=== PATIENT | female | born 1965 | race Caucasian/White ===

== ENCOUNTER 2020-04-09 00:02 | Emergency (ER) | payer OTHER, SELFPAY ==
--- NOTE | 2020-04-09 00:06 | XRR_ITS ---
PROCEDURE INFORMATION: Exam: XR Chest, 1 View Exam date and time: 04/09/2020 12:49 AM Age: 54 years old Clinical indication: Chest pain; Type not specified; Patient HX: C/O mid chest and mid back pain. Heartburn TECHNIQUE: Imaging protocol: XR of the chest Views: 1 view. COMPARISON: No relevant prior studies available. FINDINGS: Lungs: Unremarkable. No consolidation. Pleural space: Unremarkable. No pleural effusion. No pneumothorax. Heart/Mediastinum: There is a moderate hiatal hernia. Bones/joints: Unremarkable. XR/XR chest 1V portable [id number] IMPRESSION: Moderate hiatal hernia.
[2020-04-09 00:13] VITALS: BP 151/99; PULSE 56; RESP 16; TEMP 36.6; O2SAT 99; BMI 39.4
--- NOTE | 2020-04-09 00:31 | W.ED.CHESTPA ---
HPI - Chest Pain General: Chief Complaint: Chest Pain Stated Complaint: CP/SOB Time Seen by Provider: 04/09/20 00:25 Source: patient Mode of arrival: ambulatory Limitations: no limitations History of Present Illness: HPI narrative: Patient is a 54-year-old female with a history of HTN, DM, GERD, anxiety here for complaints of chest pain that began several hours ago. Patient tells me yesterday she noticed pain in the right side of her back that was present for several hours before subsiding on its own. She denied any injury or trauma. She was not having any shortness of breath or difficulty breathing. She states at the time the pain was localized to her back. She states once pain subsided she slept normally and states all day today she felt normal however a few hours ago while sleeping she woke up with epigastric/substernal chest pain. She states shortly after that the right side of her back began hurting again. She denies any previous cardiac or pulmonary history. MD complaint: chest pain Onset (ago): hour(s) Timing of current episode: constant Onset: during rest Pain location: substernal Pain radiation: back Relieving factors: nothing Associated symptoms: Deny abdominal pain, dyspnea, fever(s), nausea, palpitations, syncope or vomiting Risk Factors: Coronary artery disease risk factors: diabetes, smoking history and hypertension Thoracic aortic dissection risk factors: longstanding hypertension Related Data: On Oral Contraceptives: No Review of Systems Const: Denies: fever(s) or chills Eyes: Denies: change in vision, blurry vision, photophobia, floaters or seeing flashes ENMT: Denies: throat pain, odynophagia or nasal congestion Card: Reports: chest pain; Denies: palpitations, irregular heart rhythm, edema, swelling of feet/ankles, lightheadedness, syncope, pre-syncope, dyspnea on exertion, orthopnea or leg pain with exertion Resp: Denies: dyspnea, productive cough, non-productive cough, pain on inspiration, hemoptysis or chest congestion GI: Reports: heartburn; Denies: abdominal pain, nausea, vomiting, hematemesis, coffee ground emesis, dysphagia, diarrhea, bloating or GI cramping : Denies: flank pain, difficulty voiding, dysuria, urinary frequency, urinary urgency or urinary hesitancy Musc: Reports: back pain; Denies: neck pain or joint pain Skin/Breast: Denies: rash Neuro: Denies: headache(s), numbness in extremities, weakness in extremities or sensory changes PFSH ED PFSH: Social History Smoking and tobacco status: former smoker Current gender identity: Female Physical Exam Const: COMMON NORMALS: no acute distress, patient oriented x3 and alert GENERAL APPEARANCE: cooperative and anxious NUTRITIONAL APPEARANCE: obese ORIENTATION/CONSCIOUSNESS: Yes oriented to person, Yes oriented to place and Yes oriented to time OTHER: pt getting nauseous during examination HENMT: COMMON NORMALS: normocephalic and atraumatic HEAD & SCALP: normocephalic and atraumatic Neck/C-Spine: COMMON NORMALS: full ROM, no lymphadenopathy and no meningeal signs Chest: COMMONS NORMALS: normal inspection of the chest and normal palpation of entire chest wall Resp: COMMON NORMALS: normal respiratory effort and clear to auscultation bilaterally AUSCULTATION: clear to auscultation bilaterally Cardio: COMMON NORMALS: regular rate and regular rhythm RATE: regular rate RHYTHM: regular rhythm GI: COMMON NORMALS: Normal to inspection, nondistended, normoactive bowel sounds present, Soft to palpation, No hepatosplenomegaly present and no masses PALPATION: Yes Soft to palpation, Yes Tenderness to palpation present (GI) (epigastric ) and Yes No hepatosplenomegaly present : COMMON NORMALS: Yes no CVA tenderness BLADDER/KIDNEY EXAM: Yes no CVA tenderness Back/Pelvis: COMMON NORMALS: no CVA tenderness, thoracic and lumbar spine normal to inspection, no thoracic nor lumbar tenderness and thoraco-lumbar ROM normal OTHER: TTP over R inferior scapular region; no midline tenderness Extremity: COMMON NORMALS: normal to inspection and full ROM GENERAL: Yes normal exam except as noted Neuro: KIRIT COMA SCALE: document GCS findings [place] coma scale eye opening: Spontaneous [place] coma scale verbal response: Orientated [place] coma scale motor response: Obey commands [place] coma scale total score: 15 COMMON NORMALS: patient oriented x3, moves all extremities, no focal motor deficits, no sensory deficits noted and gait normal SENSORIUM/ORIENTATION: Yes alert, Yes oriented to person, Yes oriented to place and Yes oriented to time MENINGEAL SIGNS: Yes no meningeal signs Skin: COMMON NORMALS: no rashes or lesions noted GENERAL SKIN EXAM: no rashes or lesions noted Course Vital Signs: Vital signs: Vital Signs Temperature 97.8 F 04/09/20 00:13 Pulse Rate 51 L 04/09/20 02:16 Respiratory Rate 18 04/09/20 02:16 Blood Pressure 148/107 04/09/20 02:16 Pulse Oximetry 96 04/09/20 02:16 MDM - Chest Pain MDM Narrative: Medical decision making narrative: Patient's history of right-sided back pain that subsided on its own yesterday along with patient being completely pain-free the remainder of yesterday, throughout the night, and most of today before developing chest pain and again right-sided back pain while laying down does not raise any suspicion for acute dissection, aneurysm, embolus, pneumothorax, or other emergent condition at this time. UA is not suspicious for a nephrolithiasis. Pain on her back seems to be fairly reproducible with palpation. Patient's EKG showing no acute changes. Her troponin is normal as is her repeat. CXR shows a large hiatal hernia but otherwise normal. Possibility of referred pain from the hiatal hernia/GERD. Other DDx musculoskeletal pain. Patient is stable to follow-up with her primary care provider next week for reevaluation. Return to ED precautions given. Lab Data: Labs: Lab Results 04/09/20 04/09/20 04/09/20 Range/Units 00:33 00:33 00:33 WBC 14.3 H (4.0-10.0) 10^3/ uL RBC 4.77 (4.1-5.3) 10^6/u L Hgb 13.6 (11.5-15.3) g/dL Hct 43.7 (37.0-47.0) % MCV 91.6 (81-99) fL MCH 28.5 (28.0-34.0) pg MCHC 31.1 (30.0-36.0) g/dL RDW 14.7 (12.1-15.1) % Plt Count 326 (130-400) 10^3/c mm MPV 10.1 (7.4-10.4) fL Neut % (Auto) 34.7 % Lymph % (Auto) 55.5 % [place] % (Auto) 7.3 % Eos % (Auto) 1.3 % Baso % (Auto) 1.0 % Neut # (Auto) 5.0 (1.8-7.7) 10^3/u L Lymph # (Auto) 7.9 H (0.8-4.8) 10^3/u L [place] # (Auto) 1.1 H (0.2-0.9) 10^3/u L Eos # (Auto) 0.2 (0.0-0.8) 10^3/u L Baso # (Auto) 0.2 H (0.0-0.1) 10^3/u L Nucleated RBC % (a uto) 0 % Nucleated RBCs # 0.0 /100WBC Sodium 141 (136-145) mmol/L Potassium 4.2 (3.5-5.1) mmol/L Chloride 108 H (98-107) mmol/L Carbon Dioxide 21 L (22-29) mmol/L Anion Gap 16.2 (5-19) BUN 19 (6-20) mg/dL Creatinine 0.8 (0.5-0.9) mg/dL GFR Calculation 74.7 L (90-130) mL/min Glucose 130 H (65-115) mg/dL Calculated Osmolal ity 290 (285-295) mOsm/k g Calcium 9.9 (8.5-10.5) mg/dL Total Bilirubin 0.2 (0.15-1.2) mg/dL AST 16 (0-32) U/L ALT 16 (0-33) U/L Alkaline Phosphata se 82 (35-105) IU/L Troponin T Baselin e 6 (0-10) ng/L Troponin T 120 Min [place] (0-10) ng/L Delta Troponin T (0-10) ABS# Total Protein 6.7 (6.6-8.7) g/dL Albumin 4.2 (3.5-5.2) g/dL Globulin 2.5 (1.3-4.6) g/dL Urine Color (Yellow) Urine Appearance (CLEAR) Urine pH (5-7) Ur Specific Gravit y (1.005-1.030) Urine Protein (Negative) Urine Glucose (UA) (Normal) Urine Ketones (Negative) Urine Blood (Negative) Urine Nitrate (Negative) Urine Bilirubin (NEGATIVE) Urine Urobilinogen (Negative) mg/dL Ur Leukocyte [place] (Negative) Urine RBC (0-2) /hpf Urine WBC (0-5) /hpf Ur Squamous Epith Cells (0-5) Urine Bacteria (NONE) Urine Mucus 04/09/20 04/09/20 Range/Units 01:35 02:13 WBC (4.0-10.0) 10^3/ uL RBC (4.1-5.3) 10^6/u L Hgb (11.5-15.3) g/dL Hct (37.0-47.0) % MCV (81-99) fL MCH (28.0-34.0) pg MCHC (30.0-36.0) g/dL RDW (12.1-15.1) % Plt Count (130-400) 10^3/c mm MPV (7.4-10.4) fL Neut % (Auto) % Lymph % (Auto) % [place] % (Auto) % Eos % (Auto) % Baso % (Auto) % Neut # (Auto) (1.8-7.7) 10^3/u L Lymph # (Auto) (0.8-4.8) 10^3/u L [place] # (Auto) (0.2-0.9) 10^3/u L Eos # (Auto) (0.0-0.8) 10^3/u L Baso # (Auto) (0.0-0.1) 10^3/u L Nucleated RBC % (a uto) % Nucleated RBCs # /100WBC Sodium (136-145) mmol/L Potassium (3.5-5.1) mmol/L Chloride (98-107) mmol/L Carbon Dioxide (22-29) mmol/L Anion Gap (5-19) BUN (6-20) mg/dL Creatinine (0.5-0.9) mg/dL GFR Calculation (90-130) mL/min Glucose (65-115) mg/dL Calculated Osmolal ity (285-295) mOsm/k g Calcium (8.5-10.5) mg/dL Total Bilirubin (0.15-1.2) mg/dL AST (0-32) U/L ALT (0-33) U/L Alkaline Phosphata se (35-105) IU/L Troponin T Baselin e (0-10) ng/L Troponin T 120 Min [place] 6.00 (0-10) ng/L Delta Troponin T 0 (0-10) ABS# Total Protein (6.6-8.7) g/dL Albumin (3.5-5.2) g/dL Globulin (1.3-4.6) g/dL Urine Color Yellow (Yellow) Urine Appearance Clear (CLEAR) Urine pH 6.5 (5-7) Ur Specific Gravit y 1.015 (1.005-1.030) Urine Protein Neg (Negative) Urine Glucose (UA) Norm (Normal) Urine Ketones Negative (Negative) Urine Blood Neg (Negative) Urine Nitrate Negative (Negative) Urine Bilirubin Neg (NEGATIVE) Urine Urobilinogen Norm (Negative) mg/dL Ur Leukocyte [place] Negative (Negative) Urine RBC Rare (0-2) /hpf Urine WBC 0-4 H (0-5) /hpf Ur Squamous Epith Cells 0-4 H (0-5) Urine Bacteria Trace (NONE) Urine Mucus Trace Imaging Data^: CXR: My impression: large hiatal hernia present; otherwise WNL; reviewed with Dr. Metz EKG Data^: EKG 1: EKG interpretation date: 04/09/20 EKG interpretation time: 00:39 Interpretation: Sinus bradycardia Rate [address] elevation or depression changes noted EKG 2: EKG interpretation date: 04/09/20 EKG interpretation time: 02:34 Interpretation: Sinus bradycardia Rate [address] elevation or depression changes noted No changes from previous EKG performed on same visit Discharge Plan Discharge Patient Disposition: Home, Self-Care Clinical Impression: Chest pain, non-cardiac, Hernia, hiatal Acute right-sided back pain Qualifiers: Back pain location: thoracic back pain Qualified Code(s): M54.6 - Pain in thoracic spine Condition: Stable Discharge Orders: Discharge Order (Routine); Ordered 04/09/20 Ordered By: Izzy Stratton Activity Restrictions/Additional Instructions: Please follow up with primary care as soon as possible for continued symptoms. May return to the ED for any concerns you may have. Coding Level of Care Code ED Plush Weaver for Chg Fwd Exam Comprehensive
[2020-04-09 00:40] VITALS: BP 162/115; PULSE 58; RESP 16; O2SAT 98
[2020-04-09 00:40] LABS: Basophils # 0.2 10^3/uL (0.0-0.1); Eosinophils # 0.2 10^3/uL (0.0-0.8); Eosinophils % 1.3 %; Hematocrit 43.7 % (37.0-47.0); Hemoglobin 13.6 g/dL (11.5-15.3); Lymphocytes # 7.9 10^3/uL (0.8-4.8); Lymphocytes % 55.5 %; Mean Corpuscular HGB Conc 31.1 g/dL (30.0-36.0); Mean Corpuscular Hemoglobin 28.5 pg (28.0-34.0); Mean Corpuscular Volume 91.6 fL (81-99); Mean Platelet Volume 10.1 fL (7.4-10.4); Monocytes # 1.1 10^3/uL (0.2-0.9); Monocytes % 7.3 %; Neutrophils % 34.7 %; Nucleated Red Blood Cells % 0 %; Platelet Count 326 10^3/cmm (130-400); Positive M 1; Red Blood Count 4.77 10^6/uL (4.1-5.3); Red Cell Distribution Width 14.7 % (12.1-15.1); White Blood Count 14.3 10^3/uL (4.0-10.0)
[2020-04-09] MEDS: ondansetron 2 mg/ML SDV 2 mL 4 MG IVP (00:45)
[2020-04-09 00:52] VITALS: RESP 18; O2SAT 99
[2020-04-09] MEDS: morphine 4 mg/mL SDV 1 mL IVP (00:52)
[2020-04-09] MEDS: lidocaine 2% viscous 15 ML, aluminum-mag hydrox-simethicon 30 ML, sucralfate oral liq 1 GM PO (00:52)
[2020-04-09 01:07] LABS: Slide Review Slide Review Perform
[2020-04-09 01:09] LABS: Alanine Aminotransferase 16 U/L (0-33); Albumin Level 4.2 g/dL (3.5-5.2); Alkaline Phosphatase 82 IU/L (35-105); Anion Gap 16.2 (5-19); Aspartate Amino Transferase 16 U/L (0-32); Blood Urea Nitrogen 19 mg/dL (6-20); Calcium 9.9 mg/dL (8.5-10.5); Carbon Dioxide 21 mmol/L (22-29); Chloride 108 mmol/L (98-107); Globulin 2.5 g/dL (1.3-4.6); Glomerular Filtration Rate 74.7 mL/min (90-130); Glucose 130 mg/dL (65-115); Osmolality Calculated 290 mOsm/kg (285-295); Potassium 4.2 mmol/L (3.5-5.1); Sodium 141 mmol/L (136-145); Total Bilirubin 0.2 mg/dL (0.15-1.2); Total Protein 6.7 g/dL (6.6-8.7)
[2020-04-09 01:10] LABS: Troponin(5th) Baseline 6 ng/L (0-10)
[2020-04-09 01:19] VITALS: BP 154/70; PULSE 52; RESP 22; O2SAT 97
--- NOTE | 2020-04-09 02:06 | ECG_ITS ---
[facility] Test Date: 2020-04-09 Pat Name: Shayla Borges Department: Room: Gender: Female Department Editor: : 1965 Requested By: Izzy Stratton Order Number: [id number] Chirag MD: Kameron Geiger M.D. Measurements Intervals [place] Rate: 52 P: 59 NE: 180 QRS: 75 QRSD: 71 T: 32 QT: 390 QTc: 363 Interpretive Statements SINUS BRADYCARDIA No previous ECG available for comparison Electronically Signed On 04-09-2020 9:41:28 CDT by Kameron Geiger M.D. [id number] f
[2020-04-09 02:11] LABS: Bilirubin Urine Neg (NEGATIVE); Blood Urine Neg (Negative); Glucose Urine UA Norm (Normal); Ketones Urine Negative (Negative); Leukocyte Esterase Urine Negative (Negative); Nitrate Urine Negative (Negative); Protein Urine Neg (Negative); Specific Gravity, Urine 1.015 (1.005-1.030); Urine Appearance Clear (CLEAR); Urine Color Yellow (Yellow); Urobilinogen Urine Norm (Negative); pH Urine 6.5 (5-7)
[2020-04-09] MEDS: ketorolac 30 mg/mL INJ IVP (02:11)
[2020-04-09 02:12] LABS: Bacteria Urine TRACE; RBC Urine RARE /hpf (0-2); Squamous Epithelial Cell Urine 0-4 (0-5)
[2020-04-09 02:13] LABS: Add Urine Culture? No; Mucus Urine TRACE; WBC Urine 0-4 /hpf (0-5)
[2020-04-09] MEDS: orphenadrine 30 mg/mL Inj 2 mL 60 MG IM (02:13)
[2020-04-09 02:16] VITALS: BP 148/107; PULSE 51; RESP 18; O2SAT 96
[2020-04-09 02:47] LABS: Troponin 5 2HR Delta 0 ABS# (0-10)
[2020-04-09] MEDS: metoclopramide 5 mg/mL SDV 2 mL 10 MG IVP (03:00)
[2020-04-09 03:25] VITALS: BP 134/96; PULSE 74; RESP 18; O2SAT 96
== END 2020-04-09 03:32 | disposition home or self-care (01) ==
PROVIDERS: Emergency Provider Physician Assistant
DX: R07.89 Other chest pain (principal); K44.9 Diaphragmatic hernia without obstruction or gangrene; M54.6 Pain in thoracic spine; Z87.891 Personal history of nicotine dependence
CPT/HCPCS: 12345; 71045; 80053; 81001; 84484; 85025; 93005; 96372; 96374; 96375; 99283; J1885; J2270; J2360; J2405; J2765

== ENCOUNTER 2020-04-22 03:37 | Emergency (ER) | payer OTHER, SELFPAY ==
[2020-04-22] VITALS (11 sets, daily range): BP systolic 113–143; BP diastolic 75–98; PULSE 47–68; RESP 14–24; TEMP 36.3–37; O2SAT 88–99; BMI 38.0
[2020-04-22 04:07] LABS: Basophils # 0.1 10^3/uL (0.0-0.1); Basophils % 0.5 %; Eosinophils # 0.1 10^3/uL (0.0-0.8); Eosinophils % 0.7 %; Hematocrit 46.2 % (37.0-47.0); Hemoglobin 14.4 g/dL (11.5-15.3); Lymphocytes # 4.3 10^3/uL (0.8-4.8); Lymphocytes % 22.9 %; Mean Corpuscular HGB Conc 31.2 g/dL (30.0-36.0); Mean Corpuscular Hemoglobin 27.9 pg (28.0-34.0); Mean Corpuscular Volume 89.5 fL (81-99); Mean Platelet Volume 10.6 fL (7.4-10.4); Monocytes # 1.2 10^3/uL (0.2-0.9); Monocytes % 6.5 %; Neutrophils # 13.04 10^3/uL (1.8-7.7); Nucleated Red Blood Cells % 0 %; Platelet Count 364 10^3/cmm (130-400); Red Blood Count 5.16 10^6/uL (4.1-5.3); Red Cell Distribution Width 14.9 % (12.1-15.1); White Blood Count 18.9 10^3/uL (4.0-10.0)
[2020-04-22] MEDS: ondansetron 2 mg/ML SDV 2 mL 4 MG IVP ×4 (04:07→10:41)
[2020-04-22] MEDS: sodium chloride 0.9% 1,000 ML 999 ML IV (04:07)
--- NOTE | 2020-04-22 04:16 | CTR_ITS ---
PROCEDURE INFORMATION: Exam: CT Abdomen And Pelvis With Contrast Exam date and time: 04/22/2020 4:39 AM Age: 54 years old Clinical indication: Nausea and vomiting; Abdominal pain; Generalized; Prior surgery; Surgery date: 6+ months; Surgery type: Gb, hyst, splenectomy, hernia, colon; Additional info: Epigastric pain TECHNIQUE: Imaging protocol: Computed tomography of the abdomen and pelvis with intravenous contrast. Radiation optimization: All CT scans at this facility use at least one of these dose optimization techniques: automated exposure control; mA and/or kV adjustment per patient size (includes targeted exams where dose is matched to clinical indication); or iterative reconstruction. Contrast material: OMNI 300; Contrast volume: 95 ml; Contrast route: INTRAVENOUS (IV); COMPARISON: No relevant prior studies available. RADIATION DOSE METRICS: Total DLP (mGy-cm): 1861.13 FINDINGS: Lungs: The lung bases are clear. Mediastinal space: Large hiatal hernia, measuring up to 8-9 cm in transverse diameter. Liver: Unremarkable. Gallbladder and bile ducts: Provided clinical data describes prior cholecystectomy. However, the gallbladder is present, and contains numerous very small calcified gallstones. The gallbladder appears upper range of normal in size, transverse diameter up to 3.6 cm. No definite pericholecystic fluid or inflammation. Moderate extra hepatic biliary tree dilation, with common duct measuring up to 9-10 mm. Mild intrahepatic biliary prominence. No definite/visible visible common duct stone by CT. There is a 3 mm calcific density in the 3rd portion of the duodenum. While nonspecific, I suspect this may represent a recently passed gallstone. (axial image # 39, series 2.) Please correlate clinically. Pancreas: Mild presumed inflammatory changes around head and body of the the pancreas, suspicious for acute pancreatitis. Please correlate with clinical and laboratory evaluation. Small amount of peripancreatic and retroperitoneal fluid. No pseudocyst. No pancreatic duct dilation. The pancreas appears to enhance homogeneously. 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 There appears to be residual and/or accessory splenic tissue in the left subdiaphragmatic region. Adrenals: Unremarkable. Kidneys and ureters: Suspect a likely benign cyst in each kidney, larger on the left measures about 2 cm. Right cyst measures only 5 mm, too small to accurately characterize. No hydronephrosis of either kidney. No visible ureteral calculus. Stomach and bowel: Several small bowel loops are fluid-filled and borderline prominent in size, measuring up to 26-27 mm in diameter. The overall appearance is not strongly suggestive of significant small bowel obstruction at this time. A low-grade partial obstruction is difficult to exclude from this single exam. This appearance might be secondary to some form of gastroenteritis or ileus. Please correlate clinically. If there is clinical suspicion for small bowel obstruction, follow-up may be helpful to exclude progression. There are no CT findings to strongly suggest diverticulitis. Appendix: The appendix is not identified with certainty, however no pericecal inflammatory changes are seen. Intraperitoneal space: No free air, or ascites. Vasculature: No evidence for abdominal aortic aneurysm. Lymph nodes: No retroperitoneal adenopathy. Bladder: Unremarkable as visualized. Reproductive: Prior hysterectomy. No definite ovarian/adnexal cyst or mass by CT. Bones/joints: Moderate degenerative disc changes at L5-S1. Soft tissues: No significant acute finding. CT/CT abdomen pelvis w con* [id number] IMPRESSION: 1. Cholelithiasis, see additional details above. 2. Moderate biliary tree dilation, see above details. 3 mm calcific density in the 3rd portion of the duodenum. While nonspecific, this may represent a recently passed gallstone. 3. Findings suspicious for acute pancreatitis, see above details. 4. Several small bowel loops are fluid-filled and borderline prominent in size. This appearance may be secondary to some form of gastroenteritis or ileus. See above discussion. 5. No CT evidence to suggest appendicitis, however a normal appendix is not definitely visible. 6. Large hiatal hernia. 7. Other findings discussed above. COMMENTS: Consistent with the [place] [employer]'s Incidental Findings Committee white paper (J Am Marvin Radiol 2018): Any incidental renal lesion less than 1.0 cm or classified as too small to characterize, or any incidental cystic renal lesion characterized as simple-appearing, is likely benign. No follow-up imaging is recommended for these lesions per consensus recommendations based on imaging criteria. Radiation Dose CTDIVOL = (mGy): DLP = 1861.13 (mGy-cm)
--- NOTE | 2020-04-22 04:16 | ECG_ITS ---
[facility] Test Date: 2020-04-22 Pat Name: Shayla Borges Department: Room: Gender: Female Form Raiser: : 1965 Requested By: Timothy Grover Order Number: [id number] Chirag MD: Kameron Geiger M.D. Measurements Intervals [place] Rate: 49 P: 77 [place]: 188 QRS: 38 QRSD: 94 T: 38 QT: 437 QTc: 398 Interpretive Statements SINUS BRADYCARDIA Compared to ECG 04/09/2020 02:34:01 No significant changes Electronically Signed On 04-22-2020 19:04:23 CDT by Kameron Geiger M.D. [id number]
[2020-04-22 04:18] LABS: Alanine Aminotransferase 590 U/L (0-33); Albumin Level 4.3 g/dL (3.5-5.2); Alkaline Phosphatase 215 IU/L (35-105); Aspartate Amino Transferase 384 U/L (0-32); Blood Urea Nitrogen 10 mg/dL (6-20); Carbon Dioxide 19 mmol/L (22-29); Chloride 107 mmol/L (98-107); Globulin 2.9 g/dL (1.3-4.6); Glomerular Filtration Rate 87.2 mL/min (90-130); Glucose 216 mg/dL (65-115); Magnesium 1.9 mg/dL (1.7-2.3); Osmolality Calculated 293 mOsm/kg (285-295); Sodium 140 mmol/L (136-145); Total Bilirubin 3.3 mg/dL (0.15-1.2); Total Protein 7.2 g/dL (6.6-8.7)
[2020-04-22] MEDS: fentaNYL 50 mcg/mL INJ 2mL 100 MCG IVP (04:22)
[2020-04-22] MEDS: metoclopramide 5 mg/mL SDV 2 mL 10 MG IVP ×2 (04:23→10:38)
[2020-04-22 04:28] LABS: Lactate (Lactic Acid level) 2.3 mmol/L (0.5-2.2)
[2020-04-22] MEDS: iohexol 300 mg/mL 100 mL Btl IV (04:53)
[2020-04-22 05:04] LABS: Troponin(5th) Baseline 6 ng/L (0-10)
[2020-04-22 05:04] LABS: Anion Gap 17.8 (5-19); Potassium 3.8 mmol/L (3.5-5.1)
[2020-04-22] MEDS: piperacillin-tazobactam 3.375 GM in sodium chloride 0.9% (plus) 50 ML IV (05:23)
[2020-04-22] MEDS: HYDROmorphone 1 mg/mL INJ 1 mL IVP ×3 (05:34→10:39)
[2020-04-22 05:41] LABS: Lipase > 16000 U/L (13-60)
[2020-04-22 05:54] LABS: Add Urine Microscopic? NO
[2020-04-22 05:57] LABS: Bilirubin Urine Neg (NEGATIVE); Blood Urine Neg (Negative); Glucose Urine UA Norm (Normal); Ketones Urine Negative (Negative); Leukocyte Esterase Urine Negative (Negative); Nitrate Urine Negative (Negative); Protein Urine Neg (Negative); Specific Gravity, Urine 1.005 (1.005-1.030); Urine Appearance Clear (CLEAR); Urine Color Yellow (Yellow); Urobilinogen Urine 1 mg/dL (Negative); pH Urine 5 (5-7)
[2020-04-22 06:05] LABS: INR 0.92 (0.8-1.2)
--- NOTE | 2020-04-22 06:15 | W.ED.NAVMDI ---
HPI - Nausea/Vomiting/Diarrhea General: Chief complaint: Nausea/Vomiting/Diarrhea Stated complaint: vomiting Time Seen by Provider: 04/22/20 03:57 History of Present Illness: HPI Narrative: 54-year-old lady complains of epigastric and right upper quadrant pain, radiating in a bandlike fashion around her epigastrium on and off for the past 7 to 10 days. She has had persistent nausea and vomiting for the last 1 to 2 days with some pale diarrhea as well. She denies overt fever. She has a history of multiple belly surgeries including splenectomy, partial colectomy post diverticulitis, and hysterectomy/oophorectomy. MD elicited complaint: nausea, vomiting, diarrhea and abdominal pain Onset (ago): day(s) (-) Description of vomiting: food contents and bilious Description of diarrhea: watery and pasty Associated nausea: Yes Associated abdominal pain: Yes Location of pain: RUQ Severity: moderate Quality: aching Exacerbating factors: eating Relieving factors: none Context: history of abdominal surgery Associated symtoms: Reports dizziness and nausea; Denies anxiety, change in vision, chest pain, cough, dysuria, epistaxis, fevers/chills or headache(s) Review of Systems Const: Reports: chills; Denies: fever(s) Eyes: Denies: change in vision or blurry vision ENMT: Denies: swelling of lips/tongue, epistaxis or sinus pain Card: Denies: chest pain Resp: Denies: dyspnea, productive cough, non-productive cough or wheezing GI: Reports: nausea : Denies: dysuria or hematuria Musc: Reports: back pain; Denies: neck pain Skin/Breast: Denies: rash, pruritus or erythema Neuro: Reports: dizziness; Denies: headache(s) Psych: Denies: anxiety PFSH ED PFSH: Social History Smoking and tobacco status: former smoker Current gender identity: Female Physical Exam Const: GENERAL APPEARANCE: well developed ORIENTATION/CONSCIOUSNESS: Yes oriented to person, Yes oriented to place and Yes oriented to time HENMT: COMMON NORMALS: normocephalic, external ears normal and Normal external nose present HEAD & SCALP: normocephalic FACE & SINUS: normal facial exam NOSE: Normal external nose present and No nasal discharge present EXTERNAL EAR: Yes external ears normal Eye: COMMON NORMALS: Equal, round and reactive pupils present, EOMs intact bilaterally and conjunctivae normal EYELID: eyelids normal CONJUNCTIVA: Yes conjunctivae normal PUPIL: Yes Equal, round and reactive pupils present Neck/C-Spine: GENERAL: No tracheal deviation Chest: COMMONS NORMALS: normal inspection of the chest CHEST: No tenderness Resp: COMMON NORMALS: clear to auscultation bilaterally EFFORT & INSPECTION: No tachypneic, No respiratory distress, No retractions, No uses accessory muscles and No tracheal deviation AUSCULTATION: clear to auscultation bilaterally, no rhonchi, no wheezes and lung sounds not diminished Cardio: COMMON NORMALS: regular rate and regular rhythm RATE: regular rate RHYTHM: regular rhythm HEART SOUNDS: no murmurs PERIPHERAL PULSES: radial pulses present GI: INSPECTION: No abdominal distension AUSCULTATION: No Hyperactive bowel sounds present and No Hypoactive bowel sounds present PALPATION: Yes Tenderness to palpation present (GI) Details: RUQ, Yes Guarding due to palpation present (GI) and No Rigid due to palpation PERCUSSION: no dullness to percussion and no tympanic to percussion Neuro: SENSORIUM/ORIENTATION: Yes oriented to person, Yes oriented to place and Yes oriented to time Psych: COMMON NORMALS: mental status grossly normal Skin: COMMON NORMALS: no rashes or lesions noted GENERAL SKIN EXAM: no rashes or lesions noted Course Vital Signs: Vital signs: Vital Signs Temperature 97.3 F L 04/22/20 03:47 Pulse Rate 68 04/22/20 06:44 Respiratory Rate 14 04/22/20 06:44 Blood Pressure 130/93 04/22/20 06:44 Pulse Oximetry 97 04/22/20 06:44 MDM - Nausea/Vomiting/Diarrhea MDM Narrative: Medical decision making narrative: 54-year-old ill-appearing lady. Her vitals, however, are stable. Heart rate 72. Blood pressure 142/90. Saturations 98% to 100% on 2 L nasal cannula. She was placed on oxygen because of pain medicine respiratory depression. She still nauseated despite multiple doses of Zofran and Reglan. She has been given Zosyn. She has a leukocytosis of 19. Bicarbonate level of 19. Lipase of greater than 16,000, and a bilirubin of 3.3. CT shows a 9 to 10 mm common bile duct. There is a 3.3 mm stone in the first part of the duodenum with significant fat stranding around the pancreas we do not have ERCP capability at our facility. We have consult out to the hospitalist at [facility] for possible transfer. Received word from [facility] they will take in transfer. Will call with a bed. Dr. Payne has accepted. Lab Data: Labs: Lab Results 04/22/20 04/22/20 04/22/20 Range/Units 03:50 03:50 03:50 WBC 18.9 H (4.0-10.0) 10^3/ uL RBC 5.16 (4.1-5.3) 10^6/u L Hgb 14.4 (11.5-15.3) g/dL Hct 46.2 (37.0-47.0) % MCV 89.5 (81-99) fL MCH 27.9 L (28.0-34.0) pg MCHC 31.2 (30.0-36.0) g/dL RDW 14.9 (12.1-15.1) % Plt Count 364 (130-400) 10^3/c mm MPV 10.6 H (7.4-10.4) fL Neut % (Auto) 69.0 % Lymph % (Auto) 22.9 % [place] % (Auto) 6.5 % Eos % (Auto) 0.7 % Baso % (Auto) 0.5 % Neut # (Auto) 13.04 H (1.8-7.7) 10^3/u L Lymph # (Auto) 4.3 (0.8-4.8) 10^3/u L [place] # (Auto) 1.2 H (0.2-0.9) 10^3/u L Eos # (Auto) 0.1 (0.0-0.8) 10^3/u L Baso # (Auto) 0.1 (0.0-0.1) 10^3/u L Nucleated RBC % (a uto) 0 % Nucleated RBCs # 0.0 /100WBC PT (10.5-13.3) SECO NDS INR (0.8-1.2) Sodium (136-145) mmol/L Potassium (3.5-5.1) mmol/L Chloride (98-107) mmol/L Carbon Dioxide (22-29) mmol/L Anion Gap (5-19) BUN (6-20) mg/dL Creatinine (0.5-0.9) mg/dL GFR Calculation (90-130) mL/min Glucose (65-115) mg/dL Calculated Osmolal ity (285-295) mOsm/k g Lactate 2.3 H (0.5-2.2) mmol/L Calcium (8.5-10.5) mg/dL Magnesium (1.7-2.3) mg/dL Total Bilirubin (0.15-1.2) mg/dL AST (0-32) U/L ALT (0-33) U/L Alkaline Phosphata se (35-105) IU/L Troponin T Baselin e 6 (0-10) ng/L Total Protein (6.6-8.7) g/dL Albumin (3.5-5.2) g/dL Globulin (1.3-4.6) g/dL Lipase (13-60) U/L Urine Color (Yellow) Urine Appearance (CLEAR) Urine pH (5-7) Ur Specific Gravit y (1.005-1.030) Urine Protein (Negative) Urine Glucose (UA) (Normal) Urine Ketones (Negative) Urine Blood (Negative) Urine Nitrate (Negative) Urine Bilirubin (NEGATIVE) Urine Urobilinogen (Negative) mg/dL Ur Leukocyte [place] (Negative) 04/22/20 04/22/20 04/22/20 Range/Units 03:50 04:05 05:28 WBC (4.0-10.0) 10^3/ uL RBC (4.1-5.3) 10^6/u L Hgb (11.5-15.3) g/dL Hct (37.0-47.0) % MCV (81-99) fL MCH (28.0-34.0) pg MCHC (30.0-36.0) g/dL RDW (12.1-15.1) % Plt Count (130-400) 10^3/c mm MPV (7.4-10.4) fL Neut % (Auto) % Lymph % (Auto) % [place] % (Auto) % Eos % (Auto) % Baso % (Auto) % Neut # (Auto) (1.8-7.7) 10^3/u L Lymph # (Auto) (0.8-4.8) 10^3/u L [place] # (Auto) (0.2-0.9) 10^3/u L Eos # (Auto) (0.0-0.8) 10^3/u L Baso # (Auto) (0.0-0.1) 10^3/u L Nucleated RBC % (a uto) % Nucleated RBCs # /100WBC PT 12.70 (10.5-13.3) SECO NDS INR 0.92 (0.8-1.2) Sodium 140 (136-145) mmol/L Potassium 3.8 (3.5-5.1) mmol/L Chloride 107 (98-107) mmol/L Carbon Dioxide 19 L (22-29) mmol/L Anion Gap 17.8 (5-19) BUN 10 (6-20) mg/dL Creatinine 0.7 (0.5-0.9) mg/dL GFR Calculation 87.2 L (90-130) mL/min Glucose 216 H (65-115) mg/dL Calculated Osmolal ity 293 (285-295) mOsm/k g Lactate (0.5-2.2) mmol/L Calcium 10.0 (8.5-10.5) mg/dL Magnesium 1.9 (1.7-2.3) mg/dL Total Bilirubin 3.3 H (0.15-1.2) mg/dL AST 384 H (0-32) U/L ALT 590 H (0-33) U/L Alkaline Phosphata se 215 H (35-105) IU/L Troponin T Baselin e (0-10) ng/L Total Protein 7.2 (6.6-8.7) g/dL Albumin 4.3 (3.5-5.2) g/dL Globulin 2.9 (1.3-4.6) g/dL Lipase > 32376 H (13-60) U/L Urine Color Yellow (Yellow) Urine Appearance Clear (CLEAR) Urine pH 5 (5-7) Ur Specific Gravit y 1.005 (1.005-1.030) Urine Protein Neg (Negative) Urine Glucose (UA) Norm (Normal) Urine Ketones Negative (Negative) Urine Blood Neg (Negative) Urine Nitrate Negative (Negative) Urine Bilirubin Neg (NEGATIVE) Urine Urobilinogen 1 H (Negative) mg/dL Ur Leukocyte [place] Negative (Negative) Discharge Plan Discharge Patient Disposition: Xfer Other Clinical Impression: Common bile duct (CBD) obstruction Acute pancreatitis Qualifiers: Pancreatitis type: biliary Acute pancreatitis complication: unspecified Qualified Code(s): K85.10 - Biliary acute pancreatitis without necrosis or infection Condition: Stable Referrals: Perfecto Galindo MD [Primary Care Provider] - Coding Level of Care Code ED Entertainment Manager for Chg Fwd Exam Comprehensive
--- NOTE | 2020-04-22 07:09 | PC.NURSE ---
Received report no changes noted from report. Resting with lights on. Alert and oriented. Rates 2.
== END 2020-04-22 10:52 | disposition other institution (70) ==
PROVIDERS: Emergency Provider Emergency Medicine; PCP Family Medicine
DX: K85.10 Biliary acute pancreatitis without necrosis or infection (principal); K83.1 Obstruction of bile duct; Z87.891 Personal history of nicotine dependence
CPT/HCPCS: 12345; 74177; 80053; 81003; 83605; 83690; 83735; 84484; 85025; 85610; 93005; 96365; 96375; 96376; 99284; 99285; J1170; J2405; J2543; J2765; J3010; J7030; Q9967

== ENCOUNTER 2020-08-31 07:50 | Outpatient (CLI) | payer OTHER, SELFPAY ==
--- NOTE | 2020-08-31 07:55 | MM_ITS ---
WS: [id number] Exam: [id number] Date/Time of Exam: 08/31/2020 7:59 AM Reason For Exam: SCREENING VIEWS: MLO and CC views both breasts. Comparison made with prior exam of 12/17/2017. Findings: There was no sign of mass, architectural distortion or suspicious calcification in either breast. Sc attered fibroglandular densities MM/[id number] Impression: BI-RADS: 2-Benign FOLLOW-UP: 1 Year Follow-up This mammogram was also analyzed by the Computer Aided Detection System R2 Imag e Correctional Security Officer.
== END 2020-08-31 07:51 | disposition home or self-care (01) ==
LOC: RADSHAW 07:53
PROVIDERS: PCP Family Medicine; Visit Provider Family Medicine
DX: Z12.31 Encounter for screening mammogram for malignant neoplasm of breast (principal)
CPT/HCPCS: 77067

== ENCOUNTER 2021-02-13 12:10 | Emergency (ER) | payer OTHER, SELFPAY ==
--- NOTE | 2021-02-13 12:19 | ECG_ITS ---
[facility] Test Date: 2021-02-13 Pat Name: Shayla Borges Department: Room: Gender: Female Chief Accountant: : 1965 Requested By: Cleveland Walker Order Number: [id number] Chirag MD: Kaipl Bhatti M.D. Measurements Intervals [place] Rate: 67 P: 3 IL: 177 QRS: 34 QRSD: 82 T: 22 QT: 372 QTc: 393 Interpretive Statements SINUS RHYTHM LOW QRS VOLTAGE IN PRECORDIAL LEADS [QRS DEFLECTION < 1.0 mV IN CHEST LEADS] Compared to ECG 04/22/2020 04:38:15 Low QRS voltage now present Sinus bradycardia no longer present Electronically Signed On 02-14-2021 9:29:49 CDT by Kapil Bhatti M.D. [id number] f
--- NOTE | 2021-02-13 12:19 | XR_ITS ---
WS: [id number] Portable AP upright chest, 02/13/2021 Clinical Data: cp Comparison: Frontal chest, 04/09/2020. Findings: No nodules, masses or effusions are seen. The heart is normal. The pulmonary vascularity is not increased. No pneumonia or pneumothorax is seen. There is a hiatal hernia behind the heart. XR/XR chest 1V portable [id number] Impression: Negative chest.
[2021-02-13 12:21] VITALS: BP 131/68; PULSE 89; RESP 16; TEMP 36.4; O2SAT 97; BMI 35.6
--- NOTE | 2021-02-13 14:19 | ECG_ITS ---
[facility] Test Date: 2021-02-13 Pat Name: Shayla Borges Department: Room: Gender: Female Wafer Mounter: : 1965 Requested By: Cleveland Walker Order Number: [id number] Chirag MD: Kapil Bhatti M.D. Measurements Intervals [place] Rate: 52 P: 58 HI: 153 QRS: 33 QRSD: 82 T: 45 QT: 400 QTc: 374 Interpretive Statements SINUS BRADYCARDIA LOW QRS VOLTAGE IN PRECORDIAL LEADS [QRS DEFLECTION < 1.0 mV IN CHEST LEADS] Compared to ECG 04/22/2020 04:38:15 Low QRS voltage now present Electronically Signed On 02-14-2021 9:36:14 CDT by Kapil Bhatti M.D. [id number]
[2021-02-13 15:16] LABS: Basophils # 0.2 10^3/uL (0.0-0.1); Basophils % 1.1 %; Eosinophils # 0.3 10^3/uL (0.0-0.8); Eosinophils % 2.4 %; Hematocrit 43.7 % (37.0-47.0); Hemoglobin 13.8 g/dL (11.5-15.3); Lymphocytes # 6.7 10^3/uL (0.8-4.8); Lymphocytes % 49.6 %; Mean Corpuscular HGB Conc 31.6 g/dL (30.0-36.0); Mean Corpuscular Hemoglobin 28.9 pg (28.0-34.0); Mean Corpuscular Volume 91.6 fL (81-99); Mean Platelet Volume 10.3 fL (7.4-10.4); Monocytes # 0.9 10^3/uL (0.2-0.9); Monocytes % 6.8 %; Neutrophils # 5.42 10^3/uL (1.8-7.7); Neutrophils % 39.9 %; Nucleated Red Blood Cells % 0 %; Platelet Count 338 10^3/cmm (130-400); Red Blood Count 4.77 10^6/uL (4.1-5.3); Red Cell Distribution Width 14.3 % (12.1-15.1); White Blood Count 13.6 10^3/uL (4.0-10.0)
[2021-02-13 15:38] LABS: Troponin(5th) Baseline 6 ng/L (0-10)
[2021-02-13 15:45] LABS: Alanine Aminotransferase 17 U/L (0-33); Albumin Level 4.4 g/dL (3.5-5.2); Alkaline Phosphatase 82 IU/L (35-105); Anion Gap 12.7 (5-19); Aspartate Amino Transferase 17 U/L (0-32); Blood Urea Nitrogen 15 mg/dL (6-20); Calcium 9.2 mg/dL (8.5-10.5); Carbon Dioxide 24 mmol/L (22-29); Chloride 108 mmol/L (98-107); Globulin 2.4 g/dL (1.3-4.6); Glomerular Filtration Rate 74.5 mL/min (90-130); Glucose 84 mg/dL (65-115); NT Pro B Type Natriuretic Pept 41 pg/mL (0-125); Osmolality Calculated 290 mOsm/kg (285-295); Potassium 4.7 mmol/L (3.5-5.1); Sodium 140 mmol/L (136-145); Total Bilirubin 0.3 mg/dL (0.15-1.2); Total Protein 6.8 g/dL (6.6-8.7)
[2021-02-13 15:51] LABS: Add Urine Microscopic? NO; Charge for UA Resulting for Rev
[2021-02-13 15:56] LABS: D Dimer 0.44 ug/mIFEU (0-0.59)
[2021-02-13 15:57] LABS: Slide Review Slide Review Perform
--- NOTE | 2021-02-13 15:57 | W.ED.CHESTPA ---
HPI - Chest Pain General: Chief Complaint: Chest Pain Stated Complaint: CHEST TIGHTNESS, DIZZY, WEAK Time Seen by Provider: 02/13/21 14:21 History of Present Illness: HPI narrative: 55-year-old female presents with chief complaint of brief episodes of dizziness lasting a few seconds that is preceded by her heart pounding. Patient also briefly feels a pressure in the chest. She has been having these episodes for 1 year and so far has not figured out what they are caused by. She had 3 episodes today and therefore came in for evaluation. She has no known arrhythmia. She does not have any swelling, extremity pain, redness, warmth, or history of thromboembolism. No known history of coronary artery disease or congestive heart failure. She does have anxiety, prediabetes, acid reflux and mild hypertension. She is currently asymptomatic over the last 2-1/2 hours. Associated symptoms: Reports palpitations; Deny abdominal pain, diaphoresis, dyspnea, fever(s), nausea or vomiting Review of Systems General: Reports: 10 or more systems reviewed and unremarkable except in HPI and below Const: Denies: fever(s), chills, body aches, change in weight, night sweats or diaphoresis Eyes: Denies: change in vision, blurry vision, blind spots, photophobia or eye discomfort ENMT: Reports: other (No HEENT symptoms reported) Card: Reports: palpitations and other (Says episodes are accompanied by a chest pressure and dizziness); Denies: irregular heart rhythm, edema, pre-syncope, dyspnea on exertion, orthopnea or leg pain with exertion Resp: Denies: dyspnea, productive cough, non-productive cough, wheezing, pain on inspiration, change in phlegm color or hemoptysis GI: Denies: abdominal pain, nausea, vomiting, hematemesis or coffee ground emesis : Denies: flank pain, difficulty voiding, dysuria, urinary frequency or urinary urgency Musc: Denies: neck pain, back pain, extremity pain, extremity swelling, joint pain, joint swelling, joint redness, joint warmth or limited range of motion Skin/Breast: Denies: rash or new lesions Psych: Reports: anxiety PFSH ED PFSH: Social History Smoking and tobacco status: former smoker Current gender identity: Female Physical Exam Const: COMMON NORMALS: no limitations, alert and well nourished EXAM LIMITATIONS: no altered mental status GENERAL APPEARANCE: cooperative and well developed ORIENTATION/CONSCIOUSNESS: Yes awake; not confused HENMT: COMMON NORMALS: normocephalic, atraumatic, external ears normal and Normal external nose present HEAD & SCALP: normal to inspection, normocephalic and atraumatic FACE & SINUS: face symmetric NOSE: Normal external nose present EXTERNAL EAR: Yes external ears normal MOUTH: lip normal; no muffled voice Eye: COMMON NORMALS: EOMs intact bilaterally and conjunctivae normal GENERAL EYE: appearance normal, both eyes and all related structures CONJUNCTIVA: Yes conjunctivae normal Neck/C-Spine: COMMON NORMALS: no JVD GENERAL: Yes normal visual inspection and Yes trachea midline Resp: COMMON NORMALS: normal respiratory effort, No use of accessory muscles and clear to auscultation bilaterally EFFORT & INSPECTION: Yes able to speak in complete sentences and Yes symmetric chest movement AUSCULTATION: clear to auscultation bilaterally Cardio: COMMON NORMALS: no JVD, regular rate, regular rhythm, No murmurs present (Cardio) and Peripheral pulses 2+ throughout RATE: regular rate RHYTHM: regular rhythm PERIPHERAL PULSES: Peripheral pulses 2+ throughout and radial pulses present GI: COMMON NORMALS: Soft to palpation INSPECTION: Yes normal to inspection PALPATION: Yes Soft to palpation, No Tenderness to palpation present (GI) and No Guarding due to palpation present (GI) Back/Pelvis: COMMON NORMALS: thoraco-lumbar ROM normal Extremity: COMMON NORMALS: normal to inspection, full ROM, no calf tenderness and no pedal edema GENERAL: Yes normal exam except as noted Neuro: COMMON NORMALS: moves all extremities, no focal motor deficits and no sensory deficits noted SENSORIUM/ORIENTATION: Yes alert CRANIAL NERVES: Yes CN normal except as noted and Yes pupillary reactivity/size COORDINATION/BALANCE: [id number] test normal SPEECH: speech normal SENSORY EXAM: Yes extremities (Normal sensation throughout) MOTOR EXAM: 5/5 motor strength present throughout COORDINATION: [id number] test normal Psych: COMMON NORMALS: mental status grossly normal, Normal thought process present, cooperative, normal affect and speech normal APPEARANCE: Yes grossly normal ATTITUDE: Yes calm SPEECH: Yes normal speech THOUGHT PROCESS: Normal thought process present THOUGHT CONTENT: Yes Normal thought content present ATTENTION/CONCENTRATION: Yes attention grossly intact MEMORY/COGNITION: Yes memory grossly intact Skin: COMMON NORMALS: no rashes or lesions noted, turgor normal and no jaundice GENERAL SKIN EXAM: no rashes or lesions noted, turgor normal, skin not dry, no induration and no jaundice Course Vital Signs: Vital signs: Vital Signs Temperature 97.6 F 02/13/21 12:21 Pulse Rate 89 02/13/21 12:21 Respiratory Rate 16 02/13/21 12:21 Blood Pressure 131/68 02/13/21 12:21 Pulse Oximetry 97 02/13/21 12:21 MDM - Chest Pain MDM Narrative: Medical decision making narrative: Dizzy episodes are lasting only a few seconds. This makes it hard to discern the etiology. Unlikely to be hypoglycemia. Could be arrhythmia. Unlikely to be thromboembolic disease. Unlikely to be stroke although TIA or transient hypoperfusion of the brain, orthostasis vasovagal, migraine, partial seizure all considered. I explained to the patient that we are unlikely to find the etiology but we will do our best to rule out any life-threatening etiologies. If no etiology is discovered, refer for outpatient ambulatory director of cardiac rehabilitation. UPDATE: Work-up in the emergency department is unremarkable except for transient bradycardic episodes in the fifties. This is unlikely to be the cause of symptoms although it is possible. As noted above will refer for ambulatory director of cardiac rehabilitation. Lab Data: Attestation: I reviewed the patient's lab results. Labs: Lab Results 02/13/21 02/13/21 02/13/21 Range/Units 15:00 15:06 15:06 WBC 13.6 H (4.0-10.0) 10^3/ uL RBC 4.77 (4.1-5.3) 10^6/u L Hgb 13.8 (11.5-15.3) g/dL Hct 43.7 (37.0-47.0) % MCV 91.6 (81-99) fL MCH 28.9 (28.0-34.0) pg MCHC 31.6 (30.0-36.0) g/dL RDW 14.3 (12.1-15.1) % Plt Count 338 (130-400) 10^3/c mm MPV 10.3 (7.4-10.4) fL Neut % (Auto) 39.9 % Lymph % (Auto) 49.6 % [place] % (Auto) 6.8 % Eos % (Auto) 2.4 % Baso % (Auto) 1.1 % Neut # (Auto) 5.42 (1.8-7.7) 10^3/u L Lymph # (Auto) 6.7 H (0.8-4.8) 10^3/u L [place] # (Auto) 0.9 (0.2-0.9) 10^3/u L Eos # (Auto) 0.3 (0.0-0.8) 10^3/u L Baso # (Auto) 0.2 H (0.0-0.1) 10^3/u L Nucleated RBC % (a uto) 0 % Nucleated RBCs # 0.0 /100WBC D-Dimer 0.44 (0-0.59) ug/mIFE U Sodium (136-145) mmol/L Potassium (3.5-5.1) mmol/L Chloride (98-107) mmol/L Carbon Dioxide (22-29) mmol/L Anion Gap (5-19) BUN (6-20) mg/dL Creatinine (0.5-0.9) mg/dL GFR Calculation (90-130) mL/min Glucose (65-115) mg/dL Calculated Osmolal ity (285-295) mOsm/k g Calcium (8.5-10.5) mg/dL Magnesium (1.7-2.3) mg/dL Total Bilirubin (0.15-1.2) mg/dL AST (0-32) U/L ALT (0-33) U/L Alkaline Phosphata se (35-105) IU/L Troponin T Baselin e (0-10) ng/L NT-Pro-B Natriuret Pep (0-125) pg/mL Total Protein (6.6-8.7) g/dL Albumin (3.5-5.2) g/dL Globulin (1.3-4.6) g/dL Urine Color Yellow (Yellow) Urine Appearance Clear (CLEAR) Urine pH 5 (5-7) Ur Specific Gravit y 1.020 (1.005-1.030) Urine Protein Neg (Negative) Urine Glucose (UA) Norm (Normal) Urine Ketones Negative (Negative) Urine Blood Neg (Negative) Urine Nitrate Negative (Negative) Urine Bilirubin Neg (Negative) Urine Urobilinogen Norm (Negative) mg/dL Ur Leukocyte [place] Negative (Negative) 05/05/21 05/05/21 05/05/21 Range/Units 15:06 15:06 15:06 WBC (4.0-10.0) 10^3/ uL RBC (4.1-5.3) 10^6/u L Hgb (11.5-15.3) g/dL Hct (37.0-47.0) % MCV (81-99) fL MCH (28.0-34.0) pg MCHC (30.0-36.0) g/dL RDW (12.1-15.1) % Plt Count (130-400) 10^3/c mm MPV (7.4-10.4) fL Neut % (Auto) % Lymph % (Auto) % [place] % (Auto) % Eos % (Auto) % Baso % (Auto) % Neut # (Auto) (1.8-7.7) 10^3/u L Lymph # (Auto) (0.8-4.8) 10^3/u L [place] # (Auto) (0.2-0.9) 10^3/u L Eos # (Auto) (0.0-0.8) 10^3/u L Baso # (Auto) (0.0-0.1) 10^3/u L Nucleated RBC % (a uto) % Nucleated RBCs # /100WBC D-Dimer (0-0.59) ug/mIFE U Sodium 140 (136-145) mmol/L Potassium 4.7 (3.5-5.1) mmol/L Chloride 108 H (98-107) mmol/L Carbon Dioxide 24 (22-29) mmol/L Anion Gap 12.7 (5-19) BUN 15 (6-20) mg/dL Creatinine 0.8 (0.5-0.9) mg/dL GFR Calculation 74.5 L (90-130) mL/min Glucose 84 (65-115) mg/dL Calculated Osmolal ity 290 (285-295) mOsm/k g Calcium 9.2 (8.5-10.5) mg/dL Magnesium 2.0 (1.7-2.3) mg/dL Total Bilirubin 0.3 (0.15-1.2) mg/dL AST 17 (0-32) U/L ALT 17 (0-33) U/L Alkaline Phosphata se 82 (35-105) IU/L Troponin T Baselin e 6 (0-10) ng/L NT-Pro-B Natriuret Pep 41 (0-125) pg/mL Total Protein 6.8 (6.6-8.7) g/dL Albumin 4.4 (3.5-5.2) g/dL Globulin 2.4 (1.3-4.6) g/dL Urine Color (Yellow) Urine Appearance (CLEAR) Urine pH (5-7) Ur Specific Gravit y (1.005-1.030) Urine Protein (Negative) Urine Glucose (UA) (Normal) Urine Ketones (Negative) Urine Blood (Negative) Urine Nitrate (Negative) Urine Bilirubin (Negative) Urine Urobilinogen (Negative) mg/dL Ur Leukocyte [place] (Negative) Imaging Data^: CXR: Radiologist's impression: No nodules, masses or effusions are seen. The heart is normal. The pulmonary vascularity is not increased. No pneumonia or pneumothorax is seen. There is a hiatal hernia behind the heart. EKG Data^: EKG 1: Attestation: I personally reviewed and interpreted this EKG as follows: Interpretation: Sinus bradycardia at a rate of 52 bpm, normal axis, normal intervals, no concerning ST segment elevations or depressions, no ectopy Discharge Plan Discharge Patient Disposition: Home Clinical Impression: Dizzy spells, Bradycardia, sinus Condition: Stable Prescriptions: No Action buspirone 5 mg tablet 5 mg PO TID RF: 0 omeprazole 40 mg capsule,delayed release(DR/EC) 40 mg PO DAILY@0900 RF: 0 lisinopril 5 mg tablet 5 mg PO DAILY@0900 RF: 0 metformin 500 mg tablet extended release 24 hr 500 mg PO BID@0900,2100 RF: 0 celecoxib 200 mg capsule 200 mg PO DAILY@0900 RF: 0 Emergen-C 500 mg Tablet,Chewable 1 tab PO DAILY@0900 RF: 0 Discharge Orders: Discharge ED (Routine); Ordered 02/13/21 Ordered By: Flaquito Wilcox Referrals: Perfecto Galindo MD [Primary Care Provider] - 1-3 days (F/u for ambulatory director of cardiac rehabilitation) Discharge Diet: Usual diet Discharge Activity: Resume usual activity Patient Instructions: Holter Monitoring (ED), Dizziness (ED), Opioid Safety Activity Restrictions/Additional Instructions: Return to ER for worsening symptoms such as those listed in your dizziness handout. Coding Level of Care Code ED Airplane Tester for Lewis Fwd Exam Comprehensive
[2021-02-13 15:59] LABS: Bilirubin Urine Neg (Negative); Blood Urine Neg (Negative); Glucose Urine UA Norm (Normal); Ketones Urine Negative (Negative); Leukocyte Esterase Urine Negative (Negative); Nitrate Urine Negative (Negative); Protein Urine Neg (Negative); Urine Appearance Clear (CLEAR); Urine Color Yellow (Yellow); Urobilinogen Urine Norm (Negative); pH Urine 5 (5-7)
[2021-02-13 17:07] VITALS: BP 139/67; PULSE 89; RESP 16; O2SAT 97
== END 2021-02-13 17:09 | disposition home or self-care (01) ==
PROVIDERS: Family Medicine; Emergency Provider Emergency Medicine; PCP Family Medicine
DX: R42 Dizziness and giddiness (principal); R00.1 Bradycardia, unspecified; Z87.891 Personal history of nicotine dependence
CPT/HCPCS: 71045; 80053; 81003; 83735; 83880; 84484; 85025; 85378; 93005; 99284

== ENCOUNTER 2021-04-23 13:35 | Emergency (ER) | payer OTHER, SELFPAY ==
[2021-04-23 13:55] VITALS: BP 135/93; PULSE 77; RESP 16; TEMP 36.3; O2SAT 98; BMI 37.0
--- NOTE | 2021-04-23 14:07 | CTR_ITS ---
PROCEDURE INFORMATION: Exam: CT Abdomen And Pelvis Without Contrast Exam date and time: 04/23/2021 2:07 PM Age: 55 years old Clinical indication: Left flank pain for several days. Generalized abdominal pain for 1 week. Prior hysterectomy, hernia surgery, colon surgery, splenectomy and appendectomy. TECHNIQUE: Imaging protocol: Computed tomography of the abdomen and pelvis without contrast. Radiation optimization: All CT scans at this facility use at least one of these dose optimization techniques: automated exposure control; mA and/or kV adjustment per patient size (includes targeted exams where dose is matched to clinical indication); or iterative reconstruction. COMPARISON: CT abdomen pelvis w con* [id number] 04/22/2020 4:43 AM RADIATION DOSE METRICS: Total DLP (mGy-cm): 1927.24 FINDINGS: Lungs: There is scarring at the lung bases. Liver: The liver is enlarged measuring 18.1 cm. There is possible early hepatic cirrhosis. Gallbladder and bile ducts: The gallbladder has been removed. Pancreas: There appear to be new lobulations of pancreatic tissue extending anteriorly and inferiorly from the pancreatic tail. Spleen: Several splenule is a are noted in the left upper quadrant status post splenectomy. Adrenal glands: The adrenal glands are unremarkable. Kidneys and ureters: A simple left renal cyst measures 2.6 cm. No hydronephrosis is seen. Stomach and bowel: A small bowel anastomosis is noted in the mid abdomen. No evidence of small-bowel obstruction. There has been prior partial sigmoid resection. There is moderate stool in the colon; query constipation. Colonic diverticula are seen without evidence of acute diverticulitis. Appendix: The appendix has been removed. Intraperitoneal space: No free intraperitoneal air is seen. Vasculature: No abdominal aortic aneurysm. Lymph nodes: A periportal lymph node measures 1.2 x 2.0 cm. Urinary bladder: The bladder wall is thickened which may reflect underdistention. Correlate with urinalysis. Reproductive: There has been prior hysterectomy. Bones/joints: No acute fracture is identified. Soft tissues: Small fat containing diaphragmatic hernia on the right. Trace pericardial effusion. Moderate hiatal hernia. There is a small amount of apparent loculated in the mediastinum adjacent to the hiatal hernia. This measures 2.5 x 1.[address]/CT kidney stone [id number] IMPRESSION: 1. There appear to be new lobulations of pancreatic tissue extending anteriorly and inferiorly from the pancreatic tail. Recommend nonemergent MR abdomen pancreatic protocol with and without contrast to exclude pancreatic mass. 2. Small loculated fluid collection adjacent to a similar appearing moderate hiatal hernia. Recommend CT chest with contrast to further assess. 3. Hepatomegaly with periportal lymphadenopathy. 4. Moderate stool in the colon; query constipation. 5. The bladder wall is thickened. This may reflect underdistention. Correlate with urinalysis to assess for cystitis. 6. Colonic diverticula are seen without evidence of acute diverticulitis. COMMENTS: Consistent with the [employer]'s Incidental Findings Committee white paper (J Am Marvin Radiol 2018): Any incidental renal lesion less than 1 cm or classified as too small to characterize, or any incidental cystic renal lesion characterized as simple-appearing, is likely benign. No follow-up imaging is recommended for these lesions per consensus recommendations based on imaging criteria. Radiation Dose CTDIVOL = (mGy): DLP = 1927.24 (mGy-cm)
[2021-04-23 14:29] VITALS: BP 137/81; PULSE 72; RESP 18; O2SAT 99
[2021-04-23 14:42] LABS: Add Urine Microscopic? NO; Charge for UA Resulting for Rev
--- NOTE | 2021-04-23 14:42 | ED_ITS ---
HPI - General Adult General: Chief complaint: General Medical Stated complaint: left flank and abd pain Time Seen by Provider: 04/23/21 14:04 Source: patient Mode of arrival: ambulatory Limitations: no limitations History of Present Illness: HPI narrative: Patient complains of left flank pain that has been intermittent for about 1 month, however this last episode has been present for about a week. Pain is in the left flank and radiates to the left side of her abdomen. No urinary symptoms. No dysuria, no hematuria, no difficulty urinating. No fever. No prior history of kidney stones. MD complaint: left flank pain Onset (ago): week(s) (1) Location: abdomen and left Radiation: abdomen Severity: severe Quality: stabbing Pain Consistency: intermittent Relieving factors: none Exacerbating factors: none Associated symptoms: Reports nausea; Deny chest pain, confusion, cough, diaphoresis, decreased appetite, dyspnea, fevers/chills, headache(s), malaise, rash, palpitations, seizures, short of breath, syncope, vomiting or weakness Treatments prior to arrival: none Review of Systems General: Reports: 10 or more systems reviewed and unremarkable except in HPI and below Const: Denies: malaise or diaphoresis Card: Denies: chest pain, palpitations or syncope Resp: Denies: dyspnea GI: Reports: nausea; Denies: vomiting Skin/Breast: Denies: rash Neuro: Denies: headache(s) or confusion PFS ED PFSH: Social History (Reviewed 04/23/21 @ 14:45 by Carla Arevalo MD, [facility] [place] Smoking and tobacco status: former smoker Alcohol intake: current Alcohol intake frequency: holidays/special occasions only Substance/Drug Use: never Current gender identity: Female Physical Exam Const: COMMON NORMALS: no acute distress, average body habitus, patient oriented x3, no limitations, healthy appearing, alert and well nourished HENMT: COMMON NORMALS: normocephalic, atraumatic and moist oral mucous membranes HEAD & SCALP: normocephalic and atraumatic Neck/C-Spine: COMMON NORMALS: no meningeal signs and no JVD Resp: COMMON NORMALS: normal respiratory effort, No retractions, No use of accessory muscles, clear to auscultation bilaterally and percussion normal AUSCULTATION: clear to auscultation bilaterally PERCUSSION: percussion normal Cardio: COMMON NORMALS: no JVD, regular rate, regular rhythm, S1 normal heart sound present, S2 normal heart sound present, No gallops present (Cardio), No clicks present (Cardio), No murmurs present (Cardio), No rub (Cardio) and Peripheral pulses 2+ throughout RATE: regular rate RHYTHM: regular rhythm HEART SOUNDS: S1 normal heart sound present and S2 normal heart sound present PERIPHERAL PULSES: Peripheral pulses 2+ throughout GI: COMMON NORMALS: Normal to inspection, nondistended, normoactive bowel sounds present, Soft to palpation, non-tender, No hepatosplenomegaly present, no masses and no bruits PALPATION: Yes Soft to palpation and Yes No hepatosplenomegaly present : COMMON NORMALS: Yes no CVA tenderness BLADDER/KIDNEY EXAM: Yes no CVA tenderness Back/Pelvis: COMMON NORMALS: no CVA tenderness Extremity: COMMON NORMALS: normal to inspection, full ROM, capillary refill normal, no calf tenderness and no pedal edema Neuro: COMMON NORMALS: patient oriented x3 SENSORIUM/ORIENTATION: Yes alert MENINGEAL SIGNS: Yes no meningeal signs Skin: COMMON NORMALS: no rashes or lesions noted, no wounds, turgor normal, no jaundice, no petechiae and no mottling GENERAL SKIN EXAM: no rashes or lesions noted and turgor normal Course Reevaluation(s): Reevaluation #1: Discussed her lab and imaging findings with her. Negative for acute findings. CT scan shows extrapancreatic tissue and a loculated fluid collection next to a hiatal hernia. Those 2 will be worked up outpatient with an abdominal MRI and a chest CT with IV contrast. Otherwise she is discharged home with no new orders. She voiced understanding and is in agreement with the plan. Time: 15:49 Vital Signs: Vital signs: Vital Signs Temperature 97.3 F L 04/23/21 13:55 Pulse Rate 74 04/23/21 16:00 Respiratory Rate 18 04/23/21 16:00 Blood Pressure 135/75 04/23/21 16:00 Pulse Oximetry 94 04/23/21 16:00 MDM - General Adult MDM Narrative: Medical decision making narrative: 55-year-old female patient who presented to the emergency department with left flank pain. She was concerned about a kidney stone. Evaluation in the emergency department was negative for urolithiasis or a urinary tract infection. She does have some nonemergent findings on imaging that she will have followed up outpatient. Medical Records: Attestation: I reviewed the patient's medical records. Lab Data: Attestation: I reviewed the patient's lab results. Labs: Lab Results 04/23/21 04/23/21 04/23/21 Range/Units 14:33 14:49 14:49 WBC Cancelled Corrected WBC Cancelled RBC Cancelled Hgb Cancelled Hct Cancelled MCV Cancelled MCH Cancelled MCHC Cancelled RDW Cancelled Plt Count Cancelled MPV Cancelled Gran % Cancelled Neut % (Auto) Cancelled Lymph % (Auto) Cancelled [place] % (Auto) Cancelled Eos % (Auto) Cancelled Baso % (Auto) Cancelled Neut # (Auto) Cancelled Lymph # (Auto) Cancelled [place] # (Auto) Cancelled Eos # (Auto) Cancelled Baso # (Auto) Cancelled Absolute Gran (aut o) Cancelled Nucleated RBC % (a uto) Cancelled Nucleated RBCs # Cancelled Sodium Cancelled Potassium Cancelled Chloride Cancelled Carbon Dioxide Cancelled Anion Gap Cancelled BUN Cancelled Creatinine Cancelled GFR Calculation Cancelled Glucose Cancelled Calculated Osmolal ity Cancelled Calcium Cancelled Total Bilirubin Cancelled AST Cancelled ALT Cancelled Alkaline Phosphata se Cancelled C-Reactive Protein Cancelled Total Protein Cancelled Albumin Cancelled Globulin Cancelled Urine Color Yellow (Yellow) Urine Appearance Clear (CLEAR) Urine pH 5 (5-7) Ur Specific Gravit y 1.020 (1.005-1.030) Urine Protein Neg (Negative) Urine Glucose (UA) 1+ (Normal) Urine Ketones Negative (Negative) Urine Blood Neg (Negative) Urine Nitrate Negative (Negative) Urine Bilirubin Neg (Negative) Urine Urobilinogen Norm (Negative) mg/dL Ur Leukocyte [place] Negative (Negative) 04/23/21 04/23/21 Range/Units 15:30 15:30 WBC 14.5 H Corrected WBC RBC 4.67 Hgb 13.2 Hct 42.7 MCV 91.4 MCH 28.3 MCHC 30.9 RDW 15.4 H Plt Count 301 MPV 11.6 H Gran % Neut % (Auto) 34.8 Lymph % (Auto) 55.2 [place] % (Auto) 7.1 Eos % (Auto) 1.7 Baso % (Auto) 1.0 Neut # (Auto) 5.07 Lymph # (Auto) 8.0 H [place] # (Auto) 1.0 H Eos # (Auto) 0.2 Baso # (Auto) 0.1 Absolute Gran (aut o) Nucleated RBC % (a uto) 0 Nucleated RBCs # 0.0 Sodium Cancelled Potassium Cancelled Chloride Cancelled Carbon Dioxide Cancelled Anion Gap Cancelled BUN Cancelled Creatinine Cancelled GFR Calculation Cancelled Glucose Cancelled Calculated Osmolal ity Cancelled Calcium Cancelled Total Bilirubin Cancelled AST Cancelled ALT Cancelled Alkaline Phosphata se Cancelled C-Reactive Protein Cancelled Total Protein Cancelled Albumin Cancelled Globulin Cancelled Urine Color (Yellow) Urine Appearance (CLEAR) Urine pH (5-7) Ur Specific Gravit y (1.005-1.030) Urine Protein (Negative) Urine Glucose (UA) (Normal) Urine Ketones (Negative) Urine Blood (Negative) Urine Nitrate (Negative) Urine Bilirubin (Negative) Urine Urobilinogen (Negative) mg/dL Ur Leukocyte [place] (Negative) Imaging Data^: CT Abd/Pel: Attestation: I personally reviewed and interpreted this imaging study as follows: Radiologist's impression: [address] [address] Scan ReportSigned with Addenda Patient: Shayla Borges #: [id number]: 1965Acct#:[id number]/Sex: 55 / FADM Date: 04/23/21Loc: ERRoom/Bed:Attending Dr: Ordering Provider/Ordering MD: Carla Arevalo MD, [facility] [place] Date of Service: 04/23/21 Procedure(s): CT kidney stone [id number] Accession Number(s): [id number] Report Number: [id number] ADDENDUM Addendum Dictated By: Addendum Signed By: Signed Date/Time:Addendum Cosigned By: Elliot Rodriguez04/23/21 1538 ADDENDUM Addendum Dictated By: Addendum Signed By: Signed Date/Time:Addendum Cosigned By: Elliot Rodriguez04/23/[address]/CT kidney stone [id number] Findings discussed with CARLA AREVALO at 04/23/2021 3:35 PM CDT. Radiation Dose CTDIVOL = (mGy): DLP = 1927.24 (mGy-cm) Addendum Dictated By: Elliot RodriguezAddendum Signed By: Madhavi Rodriguez Date/Time:04/23/21 1538Addendum Cosigned By: ADDENDUM CT/CT kidney stone [id number] No nephrolithiasis, hydronephrosis or obstructive ureteral stone. Radiation Dose CTDIVOL = (mGy): DLP = 1927.24 (mGy-cm) Addendum Dictated By: Elliot RodriguezAddendum Signed By: Madhavi Rodriguez Date/Time:04/23/21 1518Addendum Cosigned By: PROCEDURE INFORMATION: Exam: CT Abdomen And Pelvis Without Contrast Exam date and time: 04/23/2021 2:07 PM Age: 55 years old Clinical indication: Left flank pain for several days. Generalized abdominal pain for 1 week. Prior hysterectomy, hernia surgery, colon surgery, splenectomy and appendectomy. TECHNIQUE: Imaging protocol: Computed tomography of the abdomen and pelvis without contrast. Radiation optimization: All CT scans at this facility use at least one of these dose optimization techniques: automated exposure control; mA and/or kV adjustment per patient size (includes targeted exams where dose is matched to clinical indication); or iterative reconstruction. COMPARISON: CT abdomen pelvis w con* [id number] 04/22/2020 4:43 AM RADIATION DOSE METRICS: Total DLP (mGy-cm): 1927.24 FINDINGS: Lungs: There is scarring at the lung bases. Liver: The liver is enlarged measuring 18.1 cm. There is possible early hepatic cirrhosis. Gallbladder and bile ducts: The gallbladder has been removed. Pancreas: There appear to be new lobulations of pancreatic tissue extending anteriorly and inferiorly from the pancreatic tail. Spleen: Several splenule is a are noted in the left upper quadrant status post splenectomy. Adrenal glands: The adrenal glands are unremarkable. Kidneys and ureters: A simple left renal cyst measures 2.6 cm. No hydronephrosis is seen. Stomach and bowel: A small bowel anastomosis is noted in the mid abdomen. No evidence of small-bowel obstruction. There has been prior partial sigmoid resection. There is moderate stool in the colon; query constipation. Colonic diverticula are seen without evidence of acute diverticulitis. Appendix: The appendix has been removed. Intraperitoneal space: No free intraperitoneal air is seen. Vasculature: No abdominal aortic aneurysm. Lymph nodes: A periportal lymph node measures 1.2 x 2.0 cm. Urinary bladder: The bladder wall is thickened which may reflect underdistention. Correlate with urinalysis. Reproductive: There has been prior hysterectomy. Bones/joints: No acute fracture is identified. Soft tissues: Small fat containing diaphragmatic hernia on the right. Trace pericardial effusion. Moderate hiatal hernia. There is a small amount of apparent loculated in the mediastinum adjacent to the hiatal hernia. This measures 2.5 x 1.[address]/CT kidney stone [id number] IMPRESSION: 1. There appear to be new lobulations of pancreatic tissue extending anteriorly and inferiorly from the pancreatic tail. Recommend nonemergent MR abdomen pancreatic protocol with and without contrast to exclude pancreatic mass. 2. Small loculated fluid collection adjacent to a similar appearing moderate hiatal hernia. Recommend CT chest with contrast to further assess. 3. Hepatomegaly with periportal lymphadenopathy. 4. Moderate stool in the colon; query constipation. 5. The bladder wall is thickened. This may reflect underdistention. Correlate with urinalysis to assess for cystitis. 6. Colonic diverticula are seen without evidence of acute diverticulitis. COMMENTS: Consistent with the [employer]'s Incidental Findings Committee white paper (J Am Marvin Radiol 2018): Any incidental renal lesion less than 1 cm or classified as too small to characterize, or any incidental cystic renal lesion characterized as simple-appearing, is likely benign. No follow-up imaging is recommended for these lesions per consensus recommendations based on imaging criteria. Radiation Dose CTDIVOL = (mGy): DLP = 1927.24 (mGy-cm) Dictated By:Ashlyn Rodriguezigned By:Ashlyn Rodriguezigned Date/Time:04/23/211516DD/ 15 Discharge Plan Discharge Patient Disposition: Home Clinical Impression: Acute left flank pain, Pancreatic abnormality, Hernia, hiatal Condition: Stable Prescriptions: Continued buspirone 5 mg tablet 5 mg PO TID RF: 0 omeprazole 40 mg capsule,delayed release(DR/EC) 40 mg PO DAILY@2099 RF: 0 lisinopril 5 mg tablet 5 mg PO DAILY@2099 RF: 0 metformin 500 mg tablet extended release 24 hr 500 mg PO BID@0900,2099 RF: 0 celecoxib 200 mg capsule 200 mg PO DAILY@0900 RF: 0 Emergen-C 500 mg Tablet,Chewable 1 tab PO DAILY@0900 RF: 0 Tylenol 325 mg Tablet 325 - 650 mg PO Q6H PRN (Reason: Pain) RF: 0 Aleve 220 mg Tablet 220 mg PO Q12H PRN (Reason: PAIN/FEVER) RF: 0 Discharge Orders: Discharge ED (Routine); Ordered 04/23/21 Ordered By: Carla Arevalo Referrals: Perfecto Galindo MD [Primary Care Provider] - 1-3 days Discharge Diet: Usual diet Discharge Activity: Increase activity as tolerated Patient Instructions: Hiatal Hernia (ED), Abdominal Pain (ED) Activity Restrictions/Additional Instructions: Return for any new or worsening symptoms. Follow-up with your primary care provider within 3 days. You have some extra pancreatic tissue that needs an MRI for further elucidation. Follow-up with your primary care provider for this to order the outpatient MRI. You do have some fluid collection next to your hiatal hernia and you need an outpatient CT scan of your chest with contrast to take a look at this. Have your primary care provider order this also. Continue your home medications. Coding Level of Care Code ED Sr Account Executive for Chg Fwd Exam Comprehensive
[2021-04-23 14:47] LABS: Bilirubin Urine Neg (Negative); Blood Urine Neg (Negative); Glucose Urine UA 1+ (Normal); Ketones Urine Negative (Negative); Leukocyte Esterase Urine Negative (Negative); Nitrate Urine Negative (Negative); Protein Urine Neg (Negative); Urine Appearance Clear (CLEAR); Urine Color Yellow (Yellow); Urobilinogen Urine Norm (Negative); pH Urine 5 (5-7)
[2021-04-23 15:30] VITALS: BP 158/81; PULSE 75; RESP 18; O2SAT 96
[2021-04-23 15:38] VITALS: RESP 16
[2021-04-23] MEDS: ondansetron 2 mg/ML SDV 2 mL 4 MG IVP (15:38)
[2021-04-23] MEDS: morphine 4 mg/mL SDV 1 mL IVP (15:38)
[2021-04-23 16:00] VITALS: BP 135/75; PULSE 74; RESP 18; O2SAT 94
[2021-04-23 16:22] LABS: Mean Corpuscular HGB Conc 30.9 g/dL (30.0-36.0); Mean Platelet Volume 11.6 fL (7.4-10.4); Nucleated Red Blood Cells % 0 %; Positive C 1
[2021-04-23 16:23] LABS: Positive M 1
[2021-04-23 16:24] LABS: Basophils # 0.1 10^3/uL (0.0-0.1); Eosinophils # 0.2 10^3/uL (0.0-0.8); Eosinophils % 1.7 %; Hematocrit 42.7 % (37.0-47.0); Hemoglobin 13.2 g/dL (11.5-15.3); Lymphocytes % 55.2 %; Mean Corpuscular Hemoglobin 28.3 pg (28.0-34.0); Mean Corpuscular Volume 91.4 fL (81-99); Monocytes % 7.1 %; Neutrophils # 5.07 10^3/uL (1.8-7.7); Neutrophils % 34.8 %; Platelet Count 301 10^3/cmm (130-400); Red Blood Count 4.67 10^6/uL (4.1-5.3); Red Cell Distribution Width 15.4 % (12.1-15.1); White Blood Count 14.5 10^3/uL (4.0-10.0)
== END 2021-04-23 16:16 | disposition home or self-care (01) ==
PROVIDERS: Emergency Provider Family Medicine; PCP Family Medicine
DX: R10.9 Unspecified abdominal pain (principal); K86.9 Disease of pancreas, unspecified; K44.9 Diaphragmatic hernia without obstruction or gangrene; Z79.84 Long term (current) use of oral hypoglycemic drugs; Z87.891 Personal history of nicotine dependence
CPT/HCPCS: 74176; 81003; 85025; 96374; 96375; 99283; J2270; J2405

== ENCOUNTER 2021-05-20 13:41 | Outpatient (CLI) | payer OTHER, SELFPAY ==
--- NOTE | 2021-05-20 13:59 | CT_ITS ---
WS: [id number] CT CHEST WITH INTRAVENOUS CONTRAST HISTORY: ABNORMAL FINDINGS ON PRIOR EXAM. TECHNIQUE: Contiguous 5 mm axial imaging performed on the thorax. Coronal and sagittal reformats are submitted. All CT scans at [facility] use at least one of these dose optimization techniq ues: automated exposure control; mA and/or kV adjustment per patient size (includes targeted exams wh ere dose is matched to clinical indication); or iterative reconstruction. CONTRAST: Omnipaque 300; 95 mL IV. DLP: 950.55 mGycm COMPARISON: 04/23/2021 and 04/22/2020 Lungs and central airway: Mild hyperinflation of the lungs. No mass or nodule. Linear atelectasis at the lung bases is subsegmental. Pleura: Normal. No pleural effusion. Heart and pericardium: Normal size heart. Mild pericardial thickening. Mediastinum and mundo: No significant mediastinal or hilar lymph nodes. Large hiatal hernia similar to prior studies. Vessels: Normal size aortic and pulmonary artery. No coronary artery calcifications. Chest wall and lower neck: No soft tissue masses. Upper abdomen: Patient has a large incarcerated hiatal hernia. Lobulated low-attenuation mass in the fat adjacent to the hiatal hernia on the RIGHT measures 1.9 x 1.1 cm. Similar to the prior study of but new since 04/22/2020 There is an additional soft tissue mass in the LEFT upper abdomen which is inseparable from the pancr eatic tail. Mass is slightly irregular shaped measuring 2.3 x 3.1 cm. Mass is minimally enhancing. No pancreatic duct dilatation. Lobulated remaining residual splenic tissue versus splenic granuloma. Osseous structures: No destructive process. Mild increase in thoracic kyphosis. CT/CT chest w con* [id number] IMPRESSION: 1. No pulmonary mass. 2. Lobulated low-attenuation soft tissue mass to the RIGHT of an incarcerated hiatal hernia. Low-attenuation mass measures 1.9 x 1.1 cm. New since 06/11/2010 but unchanged since 04/23/2021. As this mass is new since 04/22/2020. Neoplasm ne eds to be excluded. Cystic adenopathy should be considered. 3. Additional soft tissue mass abutting the pancreatic tail measures 2.3 x 3.1 cm. No dilatation of the pancreatic duct. This may be arising from the pancrea s but abutting the pancreas. Suggest PET/CT imaging for further evaluation of b oth of these abnormalities. 4. Cholecystectomy.
[2021-05-20] MEDS: iohexol 300 mg/mL 100 mL Btl IV (14:17)
== END 2021-05-20 13:42 | disposition home or self-care (01) ==
PROVIDERS: PCP Family Medicine; Visit Provider Family Medicine
DX: R93.89 Abnormal findings on diagnostic imaging of other specified body structures (principal); Z90.49 Acquired absence of other specified parts of digestive tract; K86.9 Disease of pancreas, unspecified
CPT/HCPCS: 71260; Q9967

== ENCOUNTER 2021-05-22 08:29 | Outpatient (CLI) | payer OTHER, SELFPAY ==
[2021-05-22 10:26] VITALS: BP 126/83; PULSE 88; RESP 14; TEMP 36.9; O2SAT 95
[2021-05-22 10:32] VITALS: BP 122/86; PULSE 83; RESP 16; TEMP 37.3; O2SAT 97
== END 2021-05-22 08:30 | disposition home or self-care (01) ==
LOC: OPS 08:34
PROVIDERS: PCP Family Medicine; Visit Provider Nurse Practitioner Family
DX: U07.1 COVID-19 (principal)
CPT/HCPCS: 96365

== ENCOUNTER 2021-08-15 14:15 | Outpatient (CLI) | payer OTHER, SELFPAY ==
--- NOTE | 2021-08-15 14:15 | USCV_ITS ---
Bobfrancy Shayla Age: 55 Gender: F : 1965 Exam Date: 08/15/2021 14:39 Ordering Phys: Kapil Bhatti M.D ([email or web address]) Technologist: Melissa Glover [place] [facility] [place]: SHORTNESS OF BREATH BP: 110 / 70 HR: 63 Rhythm: Sinus Technical Quality: Adequate MEASUREMENTS (Male / Female) Normal Values 2D ECHO LV Diastolic Diameter PLAX 4.8 cm 4.2 - 5.9 / 3.9 - 5.3 cm LV Systolic Diameter PLAX 3.0 cm IVS Diastolic Thickness 1.0 cm 0.6 - 1.0 / 0.6 - 0.9 cm IVS Systolic Thickness 1.5 cm LVPW Diastolic Thickness 1.1 cm 0.6 - 1.0 / 0.6 - 0.9 cm LVPW Systolic Thickness 1.6 cm LVOT Diameter 2.0 cm LV Ejection Fraction 2D Teich 67.3 % LV Ejection Fraction MOD 2C 54.2 % LV Ejection Fraction 2C AL 51.7 % LA Diameter 3.2 cm Aorta at Sinotubular Diameter 2.3 cm DOPPLER AV Peak Velocity 105.0 cm/s LVOT Peak Velocity 98.0 cm/s AV Area Cont Eq vti 3.3 cm squared AV Area Cont Eq pk 3.0 cm squared MV Area PHT 3.5 cm squared Mitral E to A Ratio 1.1 MV E' Velocity 57.0 cm/s Mitral E to MV E' Ratio 11.5 Mitral E to LV E' Lateral Ratio 11.0 Mitral E to LV E' Septal Ratio 12.0 TR Peak Velocity 199.0 cm/s TR Peak Gradient 15.8 mmHg PV Peak Velocity 82.0 cm/s RV Acceleration Time 0.1 s RV Ejection Time 0.3 s RV AcT/ET 0.4 FINDINGS Left Ventricle Technically limited quality echocardiogram with poor ultrasonic windows. Grossly LV systolic function is normal with EF of 55 to 60%. Regional wall motion normalities cannot be assessed because of poor quality images. Diastolic function is normal Right Ventricle Grossly normal Right Atrium Grossly normal Left Atrium Grossly normal Mitral Valve Grossly normal. Trace mitral regurgitation. Aortic Valve Grossly normal. No significant aortic stenosis seen. Tricuspid Valve Not well-visualized Pulmonic Valve Not visualized Pericardium Normal Aorta Normal ascending aorta dimension. CONCLUSIONS Technically limited quality echocardiogram with poor ultrasonic windows. Grossly LV systolic function is normal with EF of 55 to 60%. Regional wall motion normalities cannot be assessed because of poor quality images. Diastolic function is normal Trace mitral regurgitation. No comparison studies are available. Kapil Bhatti MD (Electronically Signed) Final Date: 17 August 2021 21:08 S
== END 2021-08-15 14:16 | disposition home or self-care (01) ==
PROVIDERS: PCP Family Medicine; Visit Provider Internal Medicine
DX: R06.02 Shortness of breath (principal); I34.0 Nonrheumatic mitral (valve) insufficiency
CPT/HCPCS: 93306

== ENCOUNTER → 2022-07-10 10:15 | Outpatient (BNVA) | payer BC, SELFPAY | PROVIDERS: PCP Family Medicine; Visit Provider Family Medicine | DX: F33.0 Major depressive disorder, recurrent, mild (principal); K21.9 Gastro-esophageal reflux disease without esophagitis; I10 Essential (primary) hypertension; E11.9 Type 2 diabetes mellitus without complications; Z12.39 Encounter for other screening for malignant neoplasm of breast; Z12.11 Encounter for screening for malignant neoplasm of colon; Z12.12 Encounter for screening for malignant neoplasm of rectum; M19.90 Unspecified osteoarthritis, unspecified site; I47.1 Supraventricular tachycardia; G89.29 Other chronic pain; F32.9 Major depressive disorder, single episode, unspecified; Z68.41 Body mass index [BMI] 40.0-44.9, adult | CPT/HCPCS: 80053; 80061; 81003; 83036; 84439; 84443; 85025; 85651 ==

== ENCOUNTER → 2022-08-07 12:09 | Outpatient (BNVA) | payer BC, SELFPAY | PROVIDERS: PCP Family Medicine; Visit Provider Family Medicine | DX: G89.29 Other chronic pain (principal); E11.9 Type 2 diabetes mellitus without complications; R06.02 Shortness of breath; R53.83 Other fatigue; Z68.41 Body mass index [BMI] 40.0-44.9, adult; K21.9 Gastro-esophageal reflux disease without esophagitis; R07.89 Other chest pain | CPT/HCPCS: 71046; 85651; 86812 ==

== ENCOUNTER 2022-09-16 07:28 | Outpatient (RCR) | payer BC, MEDICAID, SELFPAY | END 2022-10-11 23:59 | disposition home or self-care (01) | LOC: SPT 07:28 | PROVIDERS: PCP Family Medicine; Visit Provider Family Medicine | DX: M51.36 Other intervertebral disc degeneration, lumbar region (principal) | CPT/HCPCS: 97110; 97161; 97530 ==

== ENCOUNTER 2022-10-16 08:47 | Outpatient (RCR) | payer OTHER, BC, MEDICAID, SELFPAY | END 2022-11-06 16:30 | disposition home or self-care (01) | LOC: SPT 08:47 | PROVIDERS: PCP Family Medicine; Visit Provider Family Medicine | DX: M51.36 Other intervertebral disc degeneration, lumbar region (principal) | CPT/HCPCS: 97110 ==

== ENCOUNTER 2022-12-23 11:14 | Outpatient (CLI) | payer OTHER, BC, MEDICAID, SELFPAY ==
--- NOTE | 2022-12-23 11:23 | MM_ITS ---
WS: [id number] BILATERAL SCREENING DIGITAL TOMOSYNTHESIS MAMMOGRAM WITH CAD HISTORY: Screening. COMPARISON: 08/31/2020 and 01/05/2019 Bilateral CC and MLO views with tomosynthesis and synthetic mammography submitted. Computer aided det ection analyzed. Breast composition: There are scattered areas of fibroglandular density. No suspicious masses, microc alcifications or architectural distortion. Benign lymph nodes upper outer quadrant RIGHT breast. Cecil gn lucent centered calcifications. MM/[place] [id number] IMPRESSION: BI-RADS: 2-Benign FOLLOW UP: 1 Year Follow-up
== END 2022-12-23 11:15 | disposition home or self-care (01) ==
LOC: RAD 11:18
PROVIDERS: PCP Family Medicine; Visit Provider Family Medicine
DX: Z12.31 Encounter for screening mammogram for malignant neoplasm of breast (principal)
CPT/HCPCS: 77063; 77067

== ENCOUNTER → 2023-02-10 08:58 | Outpatient (BNVA) | payer OTHER, BC, MEDICAID, SELFPAY | PROVIDERS: PCP Family Medicine; Visit Provider Family Medicine | DX: R06.02 Shortness of breath (principal); K44.9 Diaphragmatic hernia without obstruction or gangrene | CPT/HCPCS: 71046 ==

== ENCOUNTER → 2023-05-21 10:17 | Outpatient (BNVA) | payer OTHER, BC, MEDICAID, SELFPAY | PROVIDERS: PCP Family Medicine; Visit Provider Family Medicine | DX: I10 Essential (primary) hypertension (principal); E11.9 Type 2 diabetes mellitus without complications | CPT/HCPCS: 80053; 80061; 83036; 83690; 84443; 85025 ==

== ENCOUNTER → 2023-09-15 09:30 | Outpatient (BNVA) | payer OTHER, BC, MEDICAID, SELFPAY | PROVIDERS: PCP Family Medicine; Visit Provider Nurse Practitioner Family | DX: R39.9 Unspecified symptoms and signs involving the genitourinary system (principal); R31.9 Hematuria, unspecified | CPT/HCPCS: 81000; 87077; 87086; 87184 ==

== ENCOUNTER → 2023-11-11 09:37 | Outpatient (BNVA) | payer OTHER, BC, MEDICAID, SELFPAY | PROVIDERS: PCP Family Medicine; Referring Provider Family Medicine; Visit Provider Specialist | DX: M25.552 Pain in left hip (principal); Z68.41 Body mass index [BMI] 40.0-44.9, adult | CPT/HCPCS: 73502 ==

== ENCOUNTER 2023-11-18 07:31 | Outpatient (CLI) | payer OTHER, BC, MEDICAID, SELFPAY ==
--- NOTE | 2023-11-18 07:40 | CT_ITS ---
WS: [id number] CT NECK TECHNIQUE: Contrast-enhanced CT of the neck with coronal and sagittal reformatted images. CLINICAL INFORMATION: DYSPHAGIA COMPARISON: None. DLP: 223.[address] scans at [facility] use at least one of these dose optimization techniques: automated e xposure control; mA and/or kV adjustment per patient size (includes targeted exams where dose is matc hed to clinical indication); or iterative reconstruction. FINDINGS: Lung apices are well aerated. Mastoid air cells are well aerated. Paranasal sinuses are well aerated . Normal posterior nasopharynx. Normal parapharyngeal fat. Parotid glands are normal. Normal submandi bular glands. Normal parapharyngeal fat. No evidence of supraglottic or glottic mass. Normal subglott ic airway. Straightening of the normal cervical lordosis. Moderate spondylitic changes. No cervical l ymphadenopathy. Calcified LEFT thyroid nodule. IMPRESSION: 1. No suspicious neck findings. 2. Normal salivary glands. 3. No evidence of supraglottic or glottic mass. 4. No cervical lymphadenopathy.
[2023-11-18] MEDS: iohexol 350 mg/mL 500 mL Btl (per mL) IV (08:28)
== END 2023-11-18 07:32 | disposition home or self-care (01) ==
LOC: RAD 07:33
PROVIDERS: PCP Family Medicine; Visit Provider Specialist
DX: R13.10 Dysphagia, unspecified (principal)
CPT/HCPCS: 70491; Q9967

== ENCOUNTER 2023-12-22 12:55 | Outpatient (CLI) | payer OTHER, BC, MEDICAID, SELFPAY ==
--- NOTE | 2023-12-22 13:04 | US_ITS ---
WS: [id number] THYROID ULTRASOUND HISTORY: NONTOXIC SINGLE THYROID NODULE COMPARISON: None available. Right lobe: 1.2 cm x 1.9 cm x 4.8 cm (w x ap x l). Volume: 5.3 cm3. Normal size gland. There is a hypoechoic nodule which is well-circumscribed in the superior pole yuko uring 0.7 x 0.6 x 1.1 cm. No echogenic foci or calcification. Left lobe: 1.3 cm x 1.1 cm x 3.6 cm (w x ap x l). Volume: 2.5 cm3. There are 2 adjacent nodules in the superior pole of the LEFT thyroid. The more inferior nodule is pe ripherally calcified. This nodule measures 0.6 x 0.7 x 0.7 cm. Adjacent and just slightly more superi or hypoechoic nodule is noncalcified measuring 0.7 x 0.7 x 0.7 cm. No echogenic foci. Isthmus: 0.4 cm. IMPRESSION: 1. TI-RADS 2; bilateral thyroid nodules. None of the thyroid nodules meet TI-RADS criteria for follo w-up or biopsy at this time. 2. Normal thyroid size.
== END 2023-12-22 12:56 | disposition home or self-care (01) ==
LOC: RAD 12:55
PROVIDERS: Visit Provider Otolaryngology
DX: E04.2 Nontoxic multinodular goiter (principal)
CPT/HCPCS: 76536

== ENCOUNTER → 2023-12-29 12:12 | Outpatient (BNVA) | payer OTHER, BC, SELFPAY | PROVIDERS: Visit Provider Internal Medicine Rheumatology | DX: Z79.899 Other long term (current) drug therapy (principal); M19.90 Unspecified osteoarthritis, unspecified site | CPT/HCPCS: 36415; 72040; 72072; 72100; 73130; 73562; 73630; 80076; 82306; 82565; 85025; 85651; 86038; 86140; 86200; 86431 ==

== ENCOUNTER 2024-01-13 09:05 | Outpatient (CLI) | payer OTHER, BC, MEDICAID, SELFPAY ==
--- NOTE | 2024-01-13 09:12 | MM_ITS ---
WS: [id number] SCREENING DIGITAL TOMOSYNTHESIS MAMMOGRAM WITH CAD HISTORY: SCREENING COMPARISON: 12/23/2022, 08/31/2020 Bilateral CC and MLO with tomosynthesis views submitted. Synthetic mammography reviewed. Computer aid ed detection analyzed. Breast composition: There are scattered areas of fibroglandular density. No suspicious masses, microc alcifications or architectural distortion. Benign calcifications in each breast. IMPRESSION: MM/[place] [id number] BI-RADS: 2-Benign FOLLOW UP: 1 Year Follow-up
== END 2024-01-13 09:06 | disposition home or self-care (01) ==
LOC: RAD 09:05
PROVIDERS: PCP Family Medicine; Visit Provider Family Medicine
DX: Z12.31 Encounter for screening mammogram for malignant neoplasm of breast (principal)
CPT/HCPCS: 77063; 77067

== ENCOUNTER 2024-04-26 06:00 | Outpatient (CLI) | payer OTHER, BC, MEDICAID, SELFPAY | END 2024-04-26 06:01 | disposition home or self-care (01) | PROVIDERS: PCP Family Medicine; Visit Provider Family Medicine | DX: E11.9 Type 2 diabetes mellitus without complications (principal); Z79.899 Other long term (current) drug therapy; M19.90 Unspecified osteoarthritis, unspecified site | CPT/HCPCS: 80053; 80061; 83036 ==

== ENCOUNTER 2024-05-25 06:43 | Day surgery (SDC) | payer OTHER, BC, MEDICAID, SELFPAY ==
[2024-05-25] VITALS (7 sets, daily range): BP systolic 121–144; BP diastolic 73–91; PULSE 60–95; RESP 16–20; TEMP 36.4–36.8; O2SAT 93–95; BMI 42.9
[2024-05-25 07:29] LABS: Glucose Point of Care 125 mg/dL (70-110)
[2024-05-25] MEDS: scopolamine 1.5 Patch 1 PATCH TRANSDERMA (07:30)
[2024-05-25] MEDS: acetaminophen 1,000 MG/100 ML PIGGYBACK 400 MG IV (07:30)
[2024-05-25] MEDS: gabapentin 300 mg Capsule PO (07:31)
[2024-05-25] MEDS: sodium chloride 0.9% 1,000 ML 30 ML IV (07:31)
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
--- NOTE | 2024-05-25 08:08 | W.PM.OPSUD ---
Surgery/Procedure H&P Update DATE OF PROCEDURE: May 25, 2024 DATE H&P PERFORMED: 04/27/24 H&P UPDATE INFORMATION: I have reviewed H&P completed within last 30 days, I have examined patient prior to procedure, No changes to prior documentation and H&P is in [facility] EMR on date indicated PREOP DIAGNOSIS: Ganglion cyst left foot PLANNED PROCEDURE: Operation Date: 05/25/24 08:20 Proposed Procedures p Excision Ganglion Cyst Excision Of Ganglion Cyst Of The Toe(Left) - Vasile Lyons DPM
[2024-05-25] MEDS: clindamycin 600 MG/50 ML PREMIX 100 MG IV (08:22)
--- NOTE | 2024-05-25 08:52 | P.BOP_ITS ---
Date of procedure: 05/25/2024 Surgeon name: Mu EspinalPUmm Balancer Scale(s) name(s): Brandin Procedure(s) performed: Soft tissue mass excision left foot third digit Description of findings: Keratotic lesion dorsal aspect of left third digit with underlying fibrotic tissue. No evidence of intact ganglion cyst. However, fibrosed tissue extended down to level of proximal interphalangeal joint Estimated blood loss: 2 cc Tourniquet time: 7 minutes Specimen(s) removed: Soft tissue mass left foot third digit Post-operative diagnosis: Soft tissue mass
--- NOTE | 2024-05-25 08:53 | PM.OP ---
Operative Report Date of procedure: May 25, 2024 Surgeon: Vsaile Lyons DPM Procedure: Date of procedure: 05/25/2024 Pre-op diagnosis: Left third digit ganglion cyst Post-op diagnosis: Same Post-op findings: Hyperkeratotic lesion dorsal aspect of left third digit with underlying fibrotic tissue. No evidence of intact ganglion cyst. However, fibrosed tissue extended down to the level of proximal interphalangeal joint Procedure done: Soft tissue mass excision left foot third digit CPT 39314 Implants: None Specimens removed: Soft tissue mass left foot third digit Surgeon: Dr. Vasile Lyons DPM Community Health Educator: Brandin Estimated blood loss: 2 cc Tourniquet time: 7 minutes Complications: None Patient is a 58-year-old female that has a history of left foot third digit ganglion cyst. The patient has had the aforementioned chief complaint for some time. Conservative treatment measures have been attempted and the patient has opted for surgical intervention at this time. A lengthy discussion regarding the procedure, including risks and complications has been had with the patient and is noted in the recent clinic note. Written and verbal consent have been obtained. All patient questions have been answered to the patient?s satisfaction. No written or verbal guarantees have been given or implied. The patient has been NPO since midnight. The history has been reviewed and the history and physical is current. The signed consent was confirmed and placed in the patient chart. Patient imaging has been reviewed and is consistent with the diagnosis. Under mild sedation, the patient was brought into the operating room and placed on the table in the supine position. IV antibiotics were given by the anesthesia team as preoperative surgical prophylaxis. IV sedation was then performed by the anesthesiateam. A local field block was performed using 0.5% Marcaine plain. A pneumatic tourniquet was then placed about the left ankle. The operative extremity was then prepped and draped in the usual fashion. The extremity was then elevated and exsanguinated before the tourniquet was inflated to 250 mmHg. After inflation, the following procedure was then performed. Attention was directed to the dorsal aspect of the left foot where a 1 cm elliptical incision was made overlying the proximal interphalangeal joint using a #15 blade. Dissection was carried down through subcutaneous tissue. No ganglion cyst was visualized. However, there is noted to be fibrotic tissue extending down to the level of the proximal interphalangeal joint. 15 blade was used to dissect this fibrotic tissue from the operative field and it was sent as surgical specimen. Electrocautery was used to cauterize the dorsal lateral aspect of the third proximal interphalangeal joint at the site of fibrosis. Care was taken to preserve adjacent structures such as neurovascular bundle and extensor digitorum longus. The site was then irrigated with copious amounts sterile saline before attention was directed to closure. Skin was closed using 4-0 nylon in simple interrupted fashion. The tourniquet was let down and good hyperemic response was noted to all digits of the left foot. The incision site was dressed with Xeroform, 4 x 4 gauze, Kerlix, Coban. The patient tolerated the procedure and anesthesia well and without complication. The patient was transported from the operating room to the recovery room with vital signs stable and vascular status intact to all digits of the left foot. The patient was given both written and verbal instructions to remain weightbearing as tolerated in postop shoe to the operative extremity, to keep dressings/splint clean, dry and intact and to take pain medication as directed. The patient will follow-up in the outpatient setting at their scheduled appointment. The patient was discharged with my personal number and was instructed to call if any questions or issues should arise. They were discharged home once anesthesia criteria was met.
--- NOTE | 2024-05-25 10:30 | ANE.PACU2 ---
Inpatient post-anesthesia follow up: Airway intact: Yes Vital signs: Temperature 97.7 F Pulse Rate 62 Respiratory Rate 17 Blood Pressure 124/88 Pulse Oximetry 94 Oxygen Delivery Me thod Room Air Oxygen Flow Rate Fraction of Inspir ed Oxygen Hydration adequate: Yes Nausea and vomiting: No Pain level: 1 Mental status: Baseline
== END 2024-05-25 10:34 | disposition home or self-care (01) ==
PROVIDERS: PCP Family Medicine; Visit Provider Podiatrist Foot & Ankle Surgery
PROC: (CPT 28090; principal; 2024-05-25 08:10)
DX: M67.442 Ganglion, left hand (principal); K21.9 Gastro-esophageal reflux disease without esophagitis; E66.01 Morbid (severe) obesity due to excess calories; Z68.41 Body mass index [BMI] 40.0-44.9, adult; E11.9 Type 2 diabetes mellitus without complications; Z87.891 Personal history of nicotine dependence
CPT/HCPCS: 28090; 36416; 82962; 88304; J0131; J2250; J2704; J3010; J3490; J7030

== ENCOUNTER 2024-06-01 12:54 | Outpatient (CLI) | payer OTHER, BC, SELFPAY | END 2024-06-01 12:55 | disposition home or self-care (01) | PROVIDERS: PCP Family Medicine; Visit Provider Family Medicine | DX: G47.33 Obstructive sleep apnea (adult) (pediatric) (principal) | CPT/HCPCS: G0399 ==

== ENCOUNTER 2024-06-30 09:07 | Outpatient (CLI) | payer OTHER, BC, SELFPAY ==
[2024-06-30 10:17] LABS: Basophils # 0.1 10^3/uL (0.0-0.1); Basophils % 1.1 %; Eosinophils # 0.2 10^3/uL (0.0-0.8); Hematocrit 42.3 % (36-47); Lymphocytes # 4.6 10^3/uL (0.8-4.8); Lymphocytes % 43.3 %; Mean Corpuscular Hemoglobin 27.9 pg (27-33); Mean Platelet Volume 10.6 fL (7.4-10.4); Monocytes # 0.8 10^3/uL (0.2-0.9); Monocytes % 7.6 %; Neutrophils # 4.84 10^3/uL (1.8-7.7); Neutrophils % 45.8 %; Nucleated Red Blood Cells % 0 %; Platelet Count 366 10^3/cmm (157-399); Red Cell Distribution Width 14.5 % (12.1-15.1); White Blood Count 10.59 10^3/uL (3.29-11.43)
[2024-06-30 10:20] LABS: Erythrocyte Sedimentation Rate 24 mm/hr (0-15)
[2024-06-30 10:39] LABS: Alanine Aminotransferase 19 U/L (0-33); Alkaline Phosphatase 84 U/L (35-105); Aspartate Amino Transferase 19 U/L (0-32); C Reactive Protein 6.8 mg/L (0.0-4.9); Globulin 3.2 g/dL (1.3-4.6); Glomerular Filtration Rate 85.9 mL/min (90-130); Total Bilirubin 0.3 mg/dL (0.15-1.2); Total Protein 7.2 g/dL (6.6-8.7)
== END 2024-06-30 09:08 | disposition home or self-care (01) ==
LOC: LAB 09:08
PROVIDERS: PCP Family Medicine; Visit Provider Internal Medicine Rheumatology
DX: M25.50 Pain in unspecified joint (principal); Z79.899 Other long term (current) drug therapy
CPT/HCPCS: 36415; 80076; 82565; 85025; 85651; 86140

== ENCOUNTER 2024-07-14 06:31 | Day surgery (SDC) | payer OTHER, BC, MEDICAID, SELFPAY ==
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
[2024-07-14 06:49] VITALS: BP 154/88; PULSE 67; RESP 18; TEMP 36.2; O2SAT 94; BMI 43.4
[2024-07-14] MEDS: sodium chloride 0.9% 1,000 ML 30 ML IV (06:58)
[2024-07-14 07:20] LABS: Glucose Point of Care 119 mg/dL (70-110)
[2024-07-14] MEDS: ondansetron 2 mg/ML SDV 2 mL 4 MG IVP (07:20)
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
[2024-07-14 08:05] VITALS: BP 135/73; PULSE 67; RESP 16; TEMP 36.1; O2SAT 95
[2024-07-14 08:16] VITALS: BP 123/60; PULSE 61; RESP 16; O2SAT 96
--- NOTE | 2024-07-14 08:43 | ANE.PACU2 ---
Inpatient post-anesthesia follow up: Airway intact: Yes Vital signs: Temperature 97 F Pulse Rate 61 Respiratory Rate 16 Blood Pressure 123/60 Pulse Oximetry 96 Oxygen Delivery Me thod Room Air Oxygen Flow Rate Fraction of Inspir ed Oxygen Hydration adequate: Yes Nausea and vomiting: No Pain level: 1 Mental status: Baseline
== END 2024-07-14 08:43 | disposition home or self-care (01) ==
PROVIDERS: PCP Family Medicine; Visit Provider Surgery
PROC: 0DJD8ZZ Inspection of Lower Intestinal Tract, Via Natural or Artificial Opening Endoscopic (ICD-10-PCS; CPT 45378; principal; 2024-07-14 07:40)
DX: Z12.11 Encounter for screening for malignant neoplasm of colon (principal); D12.5 Benign neoplasm of sigmoid colon; D12.4 Benign neoplasm of descending colon; K21.9 Gastro-esophageal reflux disease without esophagitis; E11.9 Type 2 diabetes mellitus without complications; Z90.49 Acquired absence of other specified parts of digestive tract; Z87.891 Personal history of nicotine dependence; M19.90 Unspecified osteoarthritis, unspecified site; I10 Essential (primary) hypertension; G47.33 Obstructive sleep apnea (adult) (pediatric); Z79.84 Long term (current) use of oral hypoglycemic drugs; Z86.16 Personal history of COVID-19
CPT/HCPCS: 36416; 45380; 82962; 88305; J2405; J2704; J7030

== ENCOUNTER → 2024-08-09 12:45 | Outpatient (BNVA) | payer OTHER, BC, MEDICAID, SELFPAY | PROVIDERS: PCP Family Medicine; Visit Provider Orthopaedic Surgery | DX: M54.9 Dorsalgia, unspecified (principal); G89.29 Other chronic pain | CPT/HCPCS: 72110 ==

== ENCOUNTER → 2024-09-13 16:03 | Outpatient (BNVA) | payer OTHER, BC, MEDICAID, SELFPAY | PROVIDERS: PCP Family Medicine; Visit Provider Nurse Practitioner Women's Health | DX: N39.46 Mixed incontinence (principal) | CPT/HCPCS: 81000; 87086 ==

== ENCOUNTER 2024-09-27 13:00 | Outpatient (CLI) | payer OTHER, BC, MEDICAID, SELFPAY ==
--- NOTE | 2024-09-27 13:45 | USCV_ITS ---
Katerina Shayla Age: 58 Gender: F : 1965 Exam Date: 09/27/2024 13:15 Ordering Phys: Elenita Ng NP Technologist: R Exam Location: [facility] [place]_ Indication: Left leg swelling PROCEDURES: Venous duplex imaging was performed in only the left lower extremity. The following venous structures were evaluated: common femoral vein, profunda vein, proximal portion of the greater saphenous vein, superficial femoral vein, and the popliteal vein. In addition, the posterior tibial and peroneal trunk were evaluated. FINDINGS: No evidence of DVT seen in any vessel visualized at this time. CONCLUSIONS No evidence of left lower extremity DVT. Jeremie Schuler MD (Electronically Signed) Final Date: 27 September 2024 17:01 S
== END 2024-09-27 13:01 | disposition home or self-care (01) ==
LOC: RAD 13:00
PROVIDERS: PCP Family Medicine; Visit Provider Nurse Practitioner Family
DX: M79.605 Pain in left leg (principal); M79.89 Other specified soft tissue disorders
CPT/HCPCS: 93971

== ENCOUNTER 2024-10-25 11:46 | Outpatient (CLI) | payer BC, SELFPAY ==
[2024-10-25 12:14] LABS: Basophils # 0.2 10^3/uL (0.0-0.1); Basophils % 1.5 %; Eosinophils # 0.3 10^3/uL (0.0-0.8); Eosinophils % 2.3 %; Lymphocytes # 5.2 10^3/uL (0.8-4.8); Lymphocytes % 46.9 %; Mean Corpuscular HGB Conc 30.7 g/dL (30-55); Mean Corpuscular Hemoglobin 28.1 pg (27-33); Mean Corpuscular Volume 91.5 fl (85-98); Mean Platelet Volume 9.7 fL (7.4-10.4); Monocytes # 0.9 10^3/uL (0.2-0.9); Monocytes % 8.2 %; Neutrophils # 4.57 10^3/uL (1.8-7.7); Neutrophils % 40.9 %; Nucleated Red Blood Cells % 0 %; Platelet Count 371 10^3/cmm (157-399); White Blood Count 11.18 10^3/uL (3.29-11.43)
[2024-10-25 12:31] LABS: Alanine Aminotransferase 34 U/L (0-33); Albumin Level 4.1 g/dL (3.5-5.2); Alkaline Phosphatase 91 U/L (35-105); Aspartate Amino Transferase 26 U/L (0-32); C Reactive Protein 6.5 mg/L (0.0-4.9); Globulin 3.1 g/dL (1.3-4.6); Glomerular Filtration Rate 102.7 mL/min (90-130); Total Bilirubin 0.3 mg/dL (0.15-1.2); Total Protein 7.2 g/dL (6.6-8.7)
[2024-10-25 13:08] LABS: Erythrocyte Sedimentation Rate 23 mm/hr (0-15)
== END 2024-10-25 11:47 | disposition home or self-care (01) ==
LOC: LAB 11:47
PROVIDERS: PCP Family Medicine; Visit Provider Internal Medicine Rheumatology
DX: M19.041 Primary osteoarthritis, right hand (principal); M19.042 Primary osteoarthritis, left hand; M25.50 Pain in unspecified joint
CPT/HCPCS: 36415; 80076; 82565; 85025; 85651; 86140

== ENCOUNTER → 2024-12-07 10:27 | Outpatient (BNVA) | payer BC, SELFPAY | PROVIDERS: PCP Family Medicine; Visit Provider Family Medicine | DX: E11.9 Type 2 diabetes mellitus without complications (principal); R53.83 Other fatigue | CPT/HCPCS: 80048; 83036; 84439; 84443 ==

== ENCOUNTER → 2025-02-28 16:51 | Outpatient (BNVA) | payer BC, MEDICAID, SELFPAY | PROVIDERS: PCP Family Medicine; Visit Provider Internal Medicine Rheumatology | DX: Z79.899 Other long term (current) drug therapy (principal); M06.041 Rheumatoid arthritis without rheumatoid factor, right hand | CPT/HCPCS: 36415; 80076; 82565; 85025; 85651; 86140 ==

== ENCOUNTER 2025-05-03 09:40 | Outpatient (CLI) | payer BC, MEDICAID, SELFPAY ==
--- NOTE | 2025-05-03 10:00 | USCV_ITS ---
Shayla Borges Age: 59 Gender: F : 1965 Exam Date: 05/03/2025 09:53 Ordering Phys: Kapil Bhatti M.D ([email or web address]) Technologist: NAZ Exam Location: [facility] [place] Indication: SoB, CP BP: 127 / 86 HR: 62 Rhythm: Sinus Technical Quality: Adequate MEASUREMENTS (Male / Female) Normal Values 2D ECHO LV Diastolic Diameter PLAX 5.0 cm 4.2 - 5.9 / 3.9 - 5.3 cm IVS Diastolic Thickness 1.1 cm 0.6 - 1.0 / 0.6 - 0.9 cm IVS Systolic Thickness 1.9 cm LVPW Diastolic Thickness 1.4 cm 0.6 - 1.0 / 0.6 - 0.9 cm LVPW Systolic Thickness 1.8 cm LVOT Diameter 2.0 cm LV Ejection Fraction 2D Teich 66.8 % LV Ejection Fraction MOD 4C 59.1 % LV Ejection Fraction MOD 2C 54.7 % LV Ejection Fraction 2C AL 56.5 % LA Diameter 3.8 cm RA Systolic Volume 4C AL 50.9 ml RA Systolic Volume 4C MOD 49.2 ml LA Sys Volume AL 41.2 cm cubed LA Sys Volume Index AL 17.3 cm cubed/m squared Aorta at Sinotubular Diameter 2.9 cm M-MODE LA Ao Ratio MM 1.5 AV Cusp Separation MM 1.9 cm DOPPLER AV Peak Velocity 133.0 cm/s LVOT Peak Velocity 142.0 cm/s AV Area Cont Eq vti 3.4 cm squared AV Area Cont Eq pk 3.5 cm squared MV Peak Velocity 104.0 cm/s MV Area PHT 3.2 cm squared Mitral E to A Ratio 0.9 TR Peak Velocity 101.0 cm/s TR Peak Gradient 4.1 mmHg TV Peak E Velocity 69.0 cm/s PV Peak Velocity 85.0 cm/s FINDINGS Left Ventricle Normal left ventricular size, systolic function and wall thickness, with no regional wall motion abnormalities. Left ventricular ejection fraction is estimated at 55 %. Grade I/IV diastolic dysfunction (abnormal relaxation filling pattern), normal to mildly elevated filling pressures. Right Ventricle The right ventricle is normal in size and function. Right Atrium The right atrium is normal in size. Left Atrium The left atrium is normal in size. Mitral Valve Structurally normal mitral valve without significant stenosis or prolapse. There is no mitral regurgitation. Aortic Valve Structurally normal aortic valve without significant sclerosis or stenosis. There is no aortic regurgitation. Tricuspid Valve Structurally normal tricuspid valve without significant stenosis or regurgitation. Pulmonary artery systolic pressure is normal. Pulmonic Valve Structurally normal pulmonic valve without significant stenosis. There is no pulmonic regurgitation. Pericardium Normal pericardium without effusion. Aorta Normal ascending aorta dimension. IVC The inferior vena cava appears normal. CONCLUSIONS Normal left ventricular size, systolic function and wall thickness, with no regional wall motion abnormalities. Left ventricular ejection fraction is estimated at 55 %. Grade I/IV diastolic dysfunction (abnormal relaxation filling pattern), normal to mildly elevated filling pressures. There is no pericardial effusion. No significant chamber abnormalities. No significant valve abnormalities. Right atrial pressure is around 5 mm of mercury. Rashard Emmanuel MD (Electronically Signed) Final Date: 05 May 2025 21:07 S
== END 2025-05-03 09:41 | disposition home or self-care (01) ==
LOC: RAD 09:41
PROVIDERS: PCP Family Medicine; Visit Provider Internal Medicine
DX: R06.02 Shortness of breath (principal); R93.1 Abnormal findings on diagnostic imaging of heart and coronary circulation
CPT/HCPCS: 93306

== ENCOUNTER 2025-06-09 15:14 | Emergency (ER) | payer BC, MEDICAID, SELFPAY ==
--- OUTSIDE RECORDS SUMMARY | 2024-08-06 04:00 | XMS_ITS ---
Author Organization [facility] Address [address] [place] [address] Care Team Providers Care Area Director Of Home Health Sales Name Role Phone Dilan Andres MD Primary Care Provider Unavailab Arlen Magana Unavailable [phone] Migration, Provider Unavailable Unavailable REASON FOR VISIT EMR-Sot[facility] Encounters Encounter Location Date Provider Diagnosis Migrated_Facility 0 0 08/06/2024 Provider Migration Plan Of Treatment No Information Progress Notes * Shayla ZAFAR GDOB:[birth year] (59 yo F)Acc No.[id number]:08/06/2024 Patient: Lalo Shayla CURRY :1965 A ge:58 Y S ex:Female Address[address], [place] [address] Subjective: * Chief Complaints: * E MR-Sotero * * Date:
--- OUTSIDE RECORDS SUMMARY | 2024-08-07 04:00 | XMS_ITS ---
Author Organization [facility] Address [address] [place] [address] Care Team Providers Care Dental Equipment Technician Name Role Phone Dilan Andres MD Primary Care Provider Unavailab Arlen Magana Unavailable [phone] Migration, Provider Unavailable Unavailable Allergies Allergen (clinical drug ingredient) Drug/Non Drug Allergy documented on EMR Reaction Allergy Type Onset Date Status ciprofloxacin Cipro Unknown Drug Allergy Act art erythromycin Erythromycin Base Unknown Drug Allergy Active tramadol traMADol HCl Unknown Drug Allergy Acti ve ceftriaxone Ceftriaxone Unknown Drug Allergy Act art ciprofloxacin Ciprofloxacin Unknown Drug Allergy Active codeine Codeine Unknown Drug Allergy Active erythromycin Erythromycin Unknown Drug Allergy A ctive nitrofurantoin Nitrofurantoin Unknown Drug Allergy Active sulfamethoxazole Sulfamethoxazole Unknown Drug Allergy Active tramadol Tramadol Unknown Drug Allergy Active REASON FOR VISIT EMR-Sotero Medications Medication SIG (Take, Route, Frequency, Duration) Notes Start Date End Date Status Cymbalta *Pick strength-f orm from [facility] for eRX* Active Lisinopril *[facility]* Active Metoprolol Tartrate *Pick streng th-form from [facility] for eRX* Active Omeprazole *[facility]* Active Metformin *[facility] for e[facility] and Interaction Alerts* Active Hydroxychloroquine *[facility]* Active Social History Social History Additional Details Category Social Info Options Details Migrated Social History Migrated Social History Alcoholic beverages? - No, Currently on disability? - No, Drug or substance abuse? - Yes : 20 yrs ago, Marital Status - , Nonprescription drug use? - No, Participation in detoxification or rehabilitation - No, Smoking - No, Working currently? 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 * Social History: M igrated Social History: M igrated Social History: Alcoholic beverages? - No, C urrently on disability? - No, D rug or substance abuse? - Yes : 20 yrs ago, M arital Status - , N onprescription drug use? - No, P articipation in detoxification or rehabilitation - No, S moking - No, W orking currently? - No. * Medications: T akingCymbalta , Notes to Pharmacist: *Pick strength-form from [facility] for eRX*Metformin , Notes to Pharmacist: *Reorder from [facility] for eRx and Interaction Alerts*Hydroxychloroquine , Notes to Pharmacist: *Reorder from [facility] for eRx and Interaction Alerts*Lisinopril , Notes to Pharmacist: *Pick strength-form from [facility] for eRX*Omeprazole , Notes to Pharmacist: *Pick strength-form from [facility] for eRX*Metoprolol Tartrate , Notes to Pharmacist: *Pick strength-form from [facility] for eRX*Taking Cymbalta , Notes to Pharmacist: *Pick strength-form from [facility] for eRX*Taking Metformin , Notes to Pharmacist: *Reorder from [facility] for eRx and Interaction Alerts*Taking Hydroxychloroquine , Notes to Pharmacist: *Reorder from [facility] for eRx and Interaction Alerts*Taking Lisinopril , Notes to Pharmacist: *Pick strength-form from [facility] for eRX*Taking Omeprazole , Notes to Pharmacist: *[facility]*Taking Metoprolol Tartrate , Notes to Pharmacist: *[facility]* * Allergies: T ramadol: AllergyErythromycin Base: AllergyCipro: AllergyCeftriaxone: AllergyCiprofloxacin: AllergyCodeine: AllergyErythromycin: AllergyNitrofurantoin: AllergySulfamethoxazole: AllergytraMADol HCl: Allergy * * Date:
--- OUTSIDE RECORDS SUMMARY | 2025-06-09 15:19 | XMS_ITS | Clinical Summary ---
Author Organization [facility] Address [address] [place] [address] Care Team Providers Care Business Intelligence Director Name Role Phone Donn Archer Yaneli HUFF Primary Care Provider Allergies Active Allergy Reactions Criticality Noted Date Comments Ceftriaxone Rash Low 06/12/2010 Ciprofloxacin Swelling Low 06/12/2010 Codeine Unknown 06/12/2010 Erythromycin Unknown 06/12/2010 Nitrofurantoin Unknown 06/12/2010 Sulfa (Sulfonamide Antibiotics) Unknown 10/2009 Tramadol Unknown 06/12/2010 Medications omeprazole (PriLOSEC) 40 mg Capsule, Delayed Release(E.C.) Take 40 mg by mouth daily. Active lisinopril (PRINIVIL) 5 mg tablet Take 5 mg by mouth daily. Active polyethylene glycol (MIRALAX) 17 gram Powder in Packet Take 1 Packet (17 Grams) by mouth 1 time daily as needed for Constipation. 0 Active ondansetron (Zofran ODT) 4 mg Tablet, Rapid Dissolve Take 1 Tablet (4 mg) by mouth every 8 hours as needed for Nausea/Emesis . Dissolve tablet on top of tongue, then swallow with saliva. 30 Tablet 1 0 Active escitalopram oxalate (LEXAPRO) 20 mg tablet TAKE 1/2 TABLET BY MOUTH EVERY DAY MAY INCREASE TO 1 TABLET DAILY AFTER 1 WEEK 0 Active busPIRone (BUSPAR) 5 mg tablet TAKE 1 TABLET BY MOUTH THREE TIMES A DAY NEEDED FOR ANXIETY 0 Active metFORMIN (GLUCOPHAGE XR) 500 mg Extended Release 24 hour tablet TAKE 2 TABLETS BY MOUTH DAILY AT BEDTIME 0 Active HYDROcodone-acetam inophen (NORCO) 7.5-325 mg TabletIndications: Calculus of gallbladder without cholecystitis without obstruction Take 1 Tablet by mouth every 4 hours as needed for Pain, Moderate. Max Daily Amount: 6 Tablets 25 Tablet 06/07/2020 7:07 PM CDT 0 Active Active Problems Problem Noted Date Diagnosed Date Leg swelling 04/28/2020 Choledocholithiasis 04/22/2020 Cholelithiasis s/p lap alexandra 06/07/2020 0 Post-operative wound abscess 09/07/2010 MRSA (methicillin resistant staph aureus) cultur e positive 08/30/2010 ileostomy, s/p takedown 08/29/10 08/29/2010 Diverticulitis, with pelvic abscesses, s/p L A R, B S O, appy, loop ileostomy 06/25/10 06/12/2010 Resolved Problems Problem Noted Date Diagnosed Date Resolved Date Gall stone pancreatitis 04/22/202004/11 Family History Medical History Relation Name Comments Unknown Daughter Relation Name Status Comments Daughter Alive Social History Tobacco Use Types Packs/Day Years Used Date Smoking Tobacco: Former Cigarettes 1 25 Smokeless Tobacco: Never Tobacco Cessation:Counseling Given: No Alcohol Use Standard Drinks/Week Comments No 0 (1 standard drink = 0.6 oz pur e alcohol) Comments No Sex and Gender Information Value Date Recorded Sex Assigned at Not on file 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 Gender Identity Not on file Sexual Orientation Not on file Last Filed Vital Signs Vital Sign Reading Time Taken Comments Blood Pressure 130/78 06/25/2020 9:22 AM CDT Pulse 76 06/25/2020 9:22 AM CDT Temperature 38 C (100.4 F) 06/08/2020 11:45 AM CDT Respiratory Rate 16 06/08/2020 4:00 AM CDT Oxygen Saturation 99% 06/25/2020 9:22 AM CDT Inhaled Oxygen Concentration - - Weight 93.6 kg (206 lb 5.6 oz) 06/07/2020 9:21 P M CDT Height 162.6 cm (5' 4 ) 06/25/2020 9:22 AM CDT Body Mass Index 35.42 06/07/2020 9:21 PM CDT Plan of Treatment Health Maintenance Due Date Last Done Comments DTAP/TDAP/TD VACCINES (1 - Tdap) 1984 HEPATITIS B VACCINES (1 of 3 - 19+ 3-dose series) 10/14 HPV/Cotest (21-29) 1986 CERVICAL CANCER SCREENING 1995 HPV/Cotest (30-65) 1995 PAP SMEAR 1995 BREAST CANCER SCREENING 2005 COLORECTAL SCREENING 2010 Colorectal Cancer Screening 2010 FIT-DNA Q 3 years 2010 FIT/FOBT Q 1 year 2010 Flex Sig/CT Colonography Q 5 years 2010 ZOSTER VACCINE (1 of 2) 2015 INFLUENZA VACCINE (#1) 2025 Medical Devices Implanted Type Area Natural Resources Faculty Member Device Identifier Shelf Expiration Date Model / Serial / Lot Clip Crtg Med/Lrg 1112 - [id number] Implanted:Qty: 1 on 06/07/2020 by Mariusz Jarquin DO at [facility] Clip N/A: Abdomen [employer] [id number] 03/08/2025 1112 / / [id number] Insurance RX OPT[employer] RX Member Subscriber Plan / Payer (Ef fective for All Dates) Name:Shayla Zafar Relation to Subscriber:Self Name:SHAYLA ZAFAR Payer ID:Not on file Group ID:[id number] Type:RX Commercial Address: [place] [place] [employer] Advance Directives For more information, please contact: [phone] * Full Code (Latest Code Status on File) Date Activated Date Inactivated Comments 06/07/2020 5:03 PM 06/08/2020 4:48 PM * Full Code Date Activated Date Inactivated Comments 06/07/2020 3:46 PM 06/07/2020 5:03 PM * Full Code Date Activated Date Inactivated Comments 06/07/2020 12:15 PM 06/07/2020 3:46 PM * Full Code Date Activated Date Inactivated Comments 04/22/2020 1:22 PM 04/29/2020 3:30 PM * Full Code Date Activated Date Inactivated Comments 08/29/2010 4:18 PM 09/03/2010 4:18 PM Care Teams Business Intelligence Director Relationship Specialty Start Date End Date Donn Archer DO PCP - General Internal Medicine 06/12/10
--- OUTSIDE RECORDS SUMMARY | 2025-06-09 15:19 | XMS_ITS | Patient Health Record ---
Author Organization [facility] Address [address] [place] [address] Care Team Providers Care Steersman Name Role Phone Dilan Andres MD Primary Care Provider Unavailab Arlen Magana Unavailable [phone] Migration, Provider Unavailable Unavailable Dilan Clarke Unavailable [phone] Allergies Allergen (clinical drug ingredient) Drug/Non Drug [...] Active tramadol Tramadol Unknown Drug Allergy Active Reason For Referral No Information Medications Medication SIG (Take, Route, Frequency, Duration) Notes Start Date End Date Status busPIRone HCl 5 MG Tablet 1 tablet Orall y Twice a day Active Cymbalta *Pick strength-form from [facility] for eRX* Active Lisinopril *Pick strength-form from [facility] for eRX* Active Metoprolol Tartrate *Pick strength-form from [facility] for eRX* Active Omeprazole 40 MG Capsule Delayed Release 1 tablet 30 minutes before meal Orally twice daily Active Omeprazole *Pick strength-form from [facility] for eRX* Active metFORMIN HCl ER 500 MG Tablet Extended Release 24 Hour 1 tablet with meal Orally twice daily Active Metoprolol Tartrate 25 MG Tablet 1 tablet with food Orally Twice a day Active Metformin *Reorder from [facility] for eRx and Interaction Alerts* Active Lisinopril 5 MG Tablet 1 tablet Orally Once a day Active Hydroxychloroquine *Reorder from [facility] for eRx and Interaction Alerts* Active Social History Tobacco Use: Social History Observation Description Date Details (start date - stop date) Former Smoker NA - NA Social History Drugs/Alcohol: Social Info Question Answer Notes Alcohol Screen (Audit-C) Did you have a drink containing alcohol in the past year? No Points 0 Interpretation Negative Tobacco Use: Social Info Question Answer Notes xTobacco Use/Smoking Are you a former smoker Additional Details Category Social Info Options Details Migrated Social History Migrated Social History Alcoholic beverages? - No, Currently on disability? - No, Drug or substance abuse? - Yes : 20 yrs ago, Marital Status - , Nonprescription drug use? - No, Participation in detoxification or rehabilitation - No, Smoking - No, Working currently? - No Problems Problem Type SNOMED Code ICD Code Onset Dates Problem Status W/U Status Risk Notes Problem Dysphagia (48408105) Dysphagia, unspecified type (R13.10) Active confirmed Problem Gastroesophageal reflux disease (064164823) Gastroesophageal reflux disease, unspecified whether esophagitis present (K21.9) Active confirmed Encounters Encounter Location Date Provider Diagnosis [facility] [address] [place] [address] 06/15/2024 Dilan [facility] [address] [place] [address] 07/20/2024 Dilan Clarke Migrated_Facility 0 0 08/06/2024 Provider Migration Migrated_Facility 0 0 08/07/2024 Provider Migration Plan Of Treatment Pending Test Test Name Order Date EGD, Upper GI Diagnostic-[id number] 3 Insurance Providers Payer Name Payer Address Payer Phone Subscriber Number Group Number Insured Name Patient Relationship to Insured Coverage Start Date Coverage End Date UMR [address] [address] [place] [address] [phone] [id number] Shayla Borges Self - patient is the insured [employer] [place] Medicaid Replacement [address] [address] [place] [address] [id number] Shayla Borges Self - patient is the insured Medical (General) History Medical History History ICD Code chicken pox arthritis diabetes hernia blood/plasma transfusion hypertension back pain hemorrhoids bronchitis anxiety pancreatitis gerd covid diverticulitis Surgical History Surgery Date(Month/Year) splenectomy 1982 hystorectomy 2009 umbilical hernia repair 2011 colon resection 2019 appendectomy 2009 Splenectomy Since 1982 colectomy Since 2009 Hysterectomy Since 2009 abdominal hernia repair Since 2013 cholecystectomy Since 2019 Hiatal hernia repair Since 2022 Hospitalization History Reason Date(Month/Year) see surgery list
--- OUTSIDE RECORDS SUMMARY | 2025-06-09 15:19 | XMS_ITS | Clinical Summary ---
[facility] Address [address] Attn: Epic Prelude ADT [place] [address] Care Team Providers Care Board Filler Name Role Phone Perfecto Galindo MD Primary Care Provider [phone] Allergies Active Allergy Reactions Criticality Noted Date Comments Ceftriaxone Rash Low 06/12/2010 Ciprofloxacin Swelling Low 06/12/2010 Codeine Unknown 06/12/2010 Erythromycin Unknown 06/12/2010 Morphine Itching Low 07/28/2023 Nitrofurantoin Unknown 06/12/2010 Sulfa (Sulfonamide Antibiotics) Unknown 10/2009 Tramadol Unknown 06/12/2010 Medications metFORMIN (GLUCOPHAGE XR) 500 mg Extended Release 24 hour tablet TAKE 2 TABLETS BY MOUTH DAILY AT BEDTIME 02/27/2020 Active busPIRone (BUSPAR) 5 mg tablet TAKE 1 TABLET BY MOUTH THREE TIMES A DAY NEEDED FOR ANXIETY 02/16/2020 Active omeprazole (PriLOSEC) 40 mg Capsule, Delayed Release(E.C.) TAKE 1 CAPSULE BY MOUTH 2 TIMES DAILY. 60 Capsule 03/20/2022 Active metoprolol tartrate (LOPRESSOR) 12.5 mg Tablet Take 25 mg by mouth 2 times daily. 07/07/2022 Active metoclopramide HCl (REGLAN) 10 mg tablet Take 10 mg by mouth 4 times daily before meals and at bedtime. Active acetaminophen (TYLENOL) 325 mg tablet Q6H 04/23/2021 Active celecoxib (CeleBREX) 200 mg capsule Take 200 mg by mouth daily. Active lisinopriL (PRINIVIL) 5 mg tablet Take 5 mg by mouth daily. PM dose Active Active Problems Problem Noted Date Diagnosed Date GERD (gastroesophageal reflux disease) 3 Nausea 05/07/2023 Leg swelling 04/28/2020 Cholelithiasis s/p lap alexandra 06/07/2020 0 Choledocholithiasis 04/22/2020 Post-operative wound abscess 09/07/2010 MRSA (methicillin resistant staph aureus) cultur e positive 08/30/2010 ileostomy, s/p takedown 08/29/10 08/29/2010 Diverticulitis, with pelvic abscesses, s/p L A R, B S O, appy, loop ileostomy 06/25/10 06/12/2010 Resolved Problems Problem Noted Date Diagnosed Date Resolved Date Gall stone pancreatitis 04/22/202004/11 Encounters Date Type Department Care Team Description 05/16/2025 External Device Data [facility] ABSTRACTION Provider, Abstract 04/04/2025 External Device Data [facility] ABSTRACTION Provider, Abstract from Last 3 Months Family History Medical History Relation Name Comments Unknown Daughter Colon Cancer Neg Hx Relation Name Status Comments Daughter Alive Social History Tobacco Use Types Packs/Day Years Used Date Smoking Tobacco: Former Cigarettes Q uit: 07/13/2017 Smokeless Tobacco: Never Tobacco Cessation:Counseling Given: No Alcohol Use Standard Drinks/Week Comments No 0 (1 standard drink = 0.6 oz pur e alcohol) Feeling Safe Answer Date Recorded Are you in a relationship wi th someone who hurts you emotionally and/or physically? 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 Gender Identity Female 07/23/2023 6:52 AM CDT Sexual Orientation Choose not to disclose 2022 6:52 AM CDT Last Filed Vital Signs Vital Sign Reading Time Taken Comments Blood Pressure 128/74 06/07/2024 10:04 AM CDT Pulse 83 06/07/2024 10:04 AM CDT Temperature 36.2 C (97.1 F) 06/07/2024 10:04 AM CDT Respiratory Rate 18 07/30/2023 4:18 PM CDT Oxygen Saturation 97% 06/07/2024 10:04 AM CDT Inhaled Oxygen Concentration - - Weight 107.5 kg (237 lb) 06/07/2024 10:04 AM CDT Height 162.6 cm (5' 4 ) 06/07/2024 10:04 AM CDT Body Mass Index 40.68 06/07/2024 10:04 AM CDT Plan of Treatment Health Maintenance Due Date Last Done Comments DIABETES ANNUAL FOOT EXAM 1983 DIABETES ANNUAL RETINAL EXAM 1983 DIABETES HBA1C Q 6 MONTHS 1983 DIABETES MICROALBUMIN ANNUAL SCREEN 1983 LDL CHOLESTEROL ANNUAL 1983 DTAP/TDAP/TD VACCINES (1 - Tdap) 1984 HEPATITIS [...] (#1) 2025 Medical Devices Implanted Type Area Internet Media Planner Device Identifier Shelf Expiration Date Model / Serial / Lot Clip Crtg Med/Lrg 1112 - [id number] Implanted:Qty : 1 on 06/07/2020 by Mariusz Jarquin DO Clip N/A: Abdomen [employer] [id number] 03/08/2025 111 / / [id number] Insurance [facility] OPTIONS PPO [id number] [place] [address] MEDICAID * Guarantor: IBIS ZAFAR Account Type Relation to Patient Date of Phone Billing Address Personal/Family [address] [place] [id number] RX [employer] RX Member Subscriber Plan / Payer (Ef fective for All Dates) Name:Ibis Zafar Relation to Subscriber:Self Name:Ibis Zafar Payer ID:Not on file Group ID:[id number] Type:RX Commercial Address: [place] [place] Advance Directives For more information, please contact: [phone] * Full Code (Latest Code Status on File) Date Activated Date Inactivated Comments 07/29/2023 6:14 PM 07/30/2023 9:14 PM * Full Code Date Activated Date Inactivated Comments 07/29/2023 9:32 AM 07/29/2023 6:14 PM * Full Code Date Activated Date Inactivated Comments 05/07/2023 11:13 AM 05/07/2023 4:25 PM * Full Code Date Activated Date Inactivated Comments 09/02/2021 11:13 AM 09/02/2021 4:06 PM Care Teams Board Filler Relationship Specialty Start Date End Date Perfecto Galindo MD [address] [id number] PCP - General Family Practice 08/29/21
[2025-06-09 15:29] VITALS: BP 133/83; PULSE 69; RESP 17; TEMP 36.8; O2SAT 96; BMI 44.6
--- NOTE | 2025-06-09 17:19 | XRR_ITS ---
PROCEDURE INFORMATION: Exam: XR Right Knee Exam date and time: 06/09/2025 5:41 PM Age: 59 years old Clinical indication: Pain; Knee; Right TECHNIQUE: Imaging protocol: Radiologic exam of the right knee. Views: 3 views. COMPARISON: CR XR knee RT 3V* [id number] 12/29/2023 12:23 PM FINDINGS: Bones/joints: No definite acute fracture or traumatic malalignment. Similar bone fragment along the lateral condyle from prior injury. No joint effusion. Soft tissues: Overlying soft tissues are unremarkable. XR/XR knee RT 3V* [id number] IMPRESSION: As above.
--- NOTE | 2025-06-09 19:20 | USR_ITS ---
PROCEDURE INFORMATION: Exam: US Duplex Right Lower Extremity Veins, Limited Exam date and time: 06/09/2025 7:59 PM Age: 59 years old Clinical indication: Pain; Leg, lower; Left; Additional info: Atraumatic rle pain TECHNIQUE: Imaging protocol: Real-time duplex ultrasound of the right extremity with 2-D lange scale, color Doppler flow and spectral waveform analysis including responses to compression and other maneuvers (when performed) with image documentation. Limited exam was focused on the right lower extremity veins. COMPARISON: CR (LOW EXM, ) 06/09/2025 5:41 PM FINDINGS: Right deep veins: Unremarkable. The common femoral, femoral, proximal profunda femoral and popliteal veins are patent without thrombus. Normal Doppler waveforms. Normal compressibility and/or augmentation response. Superficial veins: Greater saphenous vein at the saphenofemoral junction is patent without thrombus. Soft tissues: Unremarkable. US/[place] [id number] IMPRESSION: No evidence of deep vein thrombosis.
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
[2025-06-09] MEDS: HYDROcodone-acetaminophen 5-325 mg Tablet 1 TAB PO (19:42)
[2025-06-09 20:42] LABS: Hematocrit 40.5 % (36-47); Hemoglobin 12.70 g/dL (11.27-16.99); Mean Corpuscular HGB Conc 31.4 g/dL (30-55); Mean Corpuscular Hemoglobin 27.6 pg (27-33); Mean Corpuscular Volume 88.0 fl (85-98); Platelet Count 387 10^3/cmm (157-399); Red Blood Count 4.60 10^6/uL (3.85-5.65); White Blood Count 14.53 10^3/uL (3.29-11.43)
[2025-06-09] MEDS: orphenadrine 30 mg/mL Inj 2 mL 60 MG IM (21:15)
[2025-06-09 21:19] LABS: Alanine Aminotransferase 24 U/L (0-33); Albumin Level 4.0 g/dL (3.5-5.2); Alkaline Phosphatase 85 U/L (35-105); Aspartate Amino Transferase 26 U/L (0-32); Blood Urea Nitrogen 16 mg/dL (6-20); Calcium 9.9 mg/dL (8.5-10.5); Carbon Dioxide 23 mmol/L (22-29); Chloride 104 mmol/L (98-107); Creatinine Clr Calc Pharmacy 95.6174; Globulin 3.3 g/dL (1.3-4.6); Glucose 118 mg/dL (65-115); Osmolality Calculated 288 mOsm/kg (285-295); Sodium 138 mmol/L (136-145); Total Protein 7.3 g/dL (6.6-8.7)
[2025-06-09 21:32] LABS: Anion Gap 14.6 (5-19); Potassium 3.6 mmol/L (3.5-5.1)
[2025-06-09 21:36] LABS: Slide Review Slide Review Perform
[2025-06-09 21:37] LABS: Absolute Segmented Neutrophil 7.0 10/cmm (1.6-7.1); Atypical Lymphs 6.0 % (0-5); Band Neutrophils Absolute 0.3 10^3/cmm (0.0-1.2); Total Cells Counted 100 (0-100)
== END 2025-06-09 21:45 | disposition home or self-care (01) ==
PROVIDERS: Emergency Provider Physician Assistant; PCP Family Medicine
DX: M79.604 Pain in right leg (principal); Z79.82 Long term (current) use of aspirin; Z87.891 Personal history of nicotine dependence
CPT/HCPCS: 36415; 73562; 80053; 85007; 85025; 93971; 96372; 99284; J1100; J1885; J2360; J9999